=== PATIENT | male | born 1985 | race Hispanic/Latino ===

== ENCOUNTER 2016-06-11 15:23 | Inpatient (IN) | payer OTHER ==
[~2016-06-11] VITALS: Ht 172.7 cm; Wt 96.8 kg
[~2016-06-11 15:23] MED LIST: LORA-610 PO; METO50TA3 PO
--- NOTE | 2016-06-11 16:00 | NUR ---
Admit Pt walks in independently with steady gait. Report received from [facility]. No pain at this time. IV Left AC patent and covered. A&OX4. Denies CP, SOB, Nausea. States that he feels fine but was told to come to the hospital after MD office received his lab results. Care continues
[2016-06-11] MEDS ORDERED: 0.9% Sodium Chloride 1,000 ML IV SCH (16:17)
[2016-06-11] MEDS ORDERED: Ondansetron 2 mg/mL 2 mL Inj IVPUSH PRN (16:20)
[2016-06-11] MEDS ORDERED: Polyethylene Glycol (PEG) 17 Gm Powder PO PRN (16:20)
[2016-06-11] MEDS ORDERED: Alum-Mag Hydrox-Simeth 30 mL Suspension PO PRN (16:20)
[2016-06-11 16:27] VITALS: BP 177/115; PULSE 75; RESP 18; O2SAT 99
[2016-06-11] MEDS ORDERED: ALLO300T2 PO (16:36)
[2016-06-11] MEDS ORDERED: METO-274 PO (16:36)
[2016-06-11] MEDS ORDERED: AMLO5TAB2 PO (16:36)
--- NOTE | 2016-06-11 16:36 | PCM.HPMED ---
Subjective Date of Service Jun 11, 2016 Primary Provider: Admitting Physician: Manoj Suarez MD Primary Care Physician: Michelle Lara MD Attending Physician: Manoj Suarez MD Admit Status: From the Emergency Department, Admit to Red Team Chief Complaint: Elevated Creatinine History of Present Illness: Patient is a 30 year old male with a past medical history of Essential Hypertension, Chronic Kidney Disease (stage unknown), Gout, and Tobacco Use Disorder. He presented to the ER at [facility] today after he was advised to go there by his new PCP. Pt had a routine appointment to establish care with his PCP yesterday, and she ordered routine bloodwork. Pt was found to have a creatinine of 11 and was referred to the ER for emergent evaluation. Pt states he has had absolutely no symptoms. He denies any urinary changes, and he denies any edema. He states he has Gout and is supposed to take Allopurinol however he has been unable to get his medication filled for quite some time secondary to scheduling conflicts. He has severe chronic pain secondary to Gout in his right ankle, and because of this he has been taking 600 -800 mg of Ibuprofen 1-3 times a day for nearly a year. Pt denies any hematuria. In the ER at [facility], he was given 1 liter of Normal Saline IV and transferred here for Nephrology work-up. Pt has no other complaints or concerns at this time. Review of Systems: All systems reviewed and are negative except for what has already been mentioned in the HPI. Allergies Coded Allergies: No Known Allergies (Unverified Allergy, 05/29/13) Home Medications 1. Metoprolol 100 mg PO BID 2. Ibuprofen 600-800 mg 1-3 times daily PRN PMH 1. Chronic Kidney Disease, Stage Unknown 2. Essential Hypertension 3. Gout 4. Tobacco Use Disorder Family History Pt denies any family history of renal disease. Social History Hx Alcohol Use: Yes ("occasional") Hx Substance Use: No Hx Tobacco Use: Yes Smoking Status: Light Tobacco Smoker Exam Vital Signs Vital Sign - Last Date Time Temp Pulse Resp B/P Pulse Ox O2 Delivery O2 Flow Rate FiO2 06/11/16 16:27 36.5 75 18 177/115 99 Room Air Exam GENERAL: NAD, Pt sitting comfortably in elida HEENT: AT/NC, PERRLA, EOMI, MM moist CARDIAC: RRR, No M/R/G PULM: CTAB ABD: Soft, NT, ND, No CVA tenderness bilaterally; No hepatosplenomegaly present EXT: Trace edema in bilateral LE, No calve tenderness bilaterally SKIN: Warm, dry, pink, and intact NEURO: Alert and oriented x3; Following all commands Assessment & Plan Patient is a 30 year old male with a history of Chronic Kidney Disease, Essential Hypertension, and Gout who is admitted to hospital with Acute Kidney Injury on Chronic Kidney Disease likely related to heavy NSAID usage. 1. Acute Kidney Injury on Chronic Kidney Disease - Likely secondary to heavy NSAID use - Creatinine at [facility] was 11 today - Check STAT CMP and UA now - Start telemetry monitoring - Will order a STAT renal US - Avoid NSAIDs, and renally dose all medications - Avoid nephrotoxic substances - Nephrology has been consulted, and will see the patient in the AM - Pt received 1 liter of Normal Saline at [facility] today - Start IV Normal Saline at 150 mL/hour now - Check Uric Acid level now 2. Essential Hypertension - Continue home Metoprolol 100 mg PO BID - Monitor BP closely 3. Gout - Pt is non compliant with his Allopurinol - He has been taking heavy doses of Ibuprofen for the last year to control his gout pain - Check Uric Acid level now 4. Tobacco Use Disorder - Pt counseled to quit smoking 5. Disposition - Pt is admitted to hospital under inpatient status as his expected length of stay is greater than 2 midnights. He does not have any identifiable social work needs and will likely return home without any needs post discharge. FULL CODE, per discussion with patient at bedside Manoj Suarez MD Jun 11, 2016 16:36
[2016-06-11] MEDS ORDERED: ACET-171 PO (16:44)
[2016-06-11] MEDS ORDERED: IBUP200C PO (16:44)
[2016-06-11] MEDS ORDERED: CALC500T9 PO (16:52)
--- NOTE | 2016-06-11 16:57 | NUR ---
Admit nurse note Admission assessment completed based on pt. report. Pt. states he went to his doctor to try to "reconnect" as his former doctor left [facility]. Pt. states he has been out of some of his meds since December because of poor follow up with doctor. States he was referred here after lab work with not much idea of why he was here aside from "My numbers were high." "People asked me why I was here and I was like 'that's why I'm here, I don't know'." Pt. gives hx 1 kidney smaller than the other. Allergies verified and pt. oriented to room. Med rec completed per pt. recall. Report given to Eliane Haley.
[2016-06-11 17:07] LABS: BASOPHILS % (AUTO) 0.3 % (0-3); EOSINOPHILS % (AUTO) 2.3 % (0-5); MONOCYTES % (AUTO) 5.3 % (4-12); Mean Corpuscular Hemoglobin 31.3 pg (27.0-35.0); Mean Corpuscular Volume 88.2 fL (81-100); NEUTROPHILS % (AUTO) 66.7 % (40-74); Platelet Count 204 bil/L (150-400)
[2016-06-11 17:25] VITALS: PULSE 72
--- NOTE | 2016-06-11 19:27 | DRSVH ---
PROCEDURE: US RENAL SONOGRAM INDICATIONS: ana vs ckd TECHNIQUE: Real-time scanning was performed of the kidneys and bladder, with image documentation. COMPARISON: None. FINDINGS: Kidneys: Kidneys are decreased in size. Right kidney measures 7.6 cm long; left kidney measures 9.7 cm long. Right renal cortical thickness is 1.8 cm; left renal cortical thickness is 1.8 cm. there i s bilateral cortical atrophy. No hydronephrosis or nephrolithiasis. No suspicious solid mass lesion s. Lobulated appearance of the right kidney. There is hyperechoic left renal parenchymal echotexture probably reflecting medical renal disease. Simple appearing left renal cyst measuring 0.7 x 0.6 x 0. 8 cm. Bladder: Pre-void bladder volume is 168 mL. Post-void residual is 3 mL. Pre-void images demonstrat e no intraluminal masses or stones. On pre-void images, both of the ureteral jets are noted with col or Doppler interrogation. (Of note, ureteral jets may not be detectable in up to 25% of cases due to insufficient differences in specific gravity between ureteral and bladder urine). Miscellaneous: No free pelvic fluid. IMPRESSION: No hydronephrosis. Renal atrophy and parenchymal appearance suggesting medical renal disease. Please correlate clinicall y. Probable simple appearing left renal cyst, too small to characterize definitively. Dictated by: Constantin Groves M.D. on 06/11/2016 at 19:23 Approved by: Constantin Groves M.D. on 06/11/2016 at 19:25
[2016-06-11 20:41] VITALS: BP 157/95; PULSE 70; RESP 18; O2SAT 100
--- NOTE | 2016-06-11 23:41 | CONS ---
[address] [address] CONSULTATION REPORT PATIENT: HORTENSIA JOHNSON : 1985 MR#: [id number] ADMIT: 06/11/2016 JOB ID: [id number] CORRECTED REPORT: DATE OF SERVICE: 06/11/2016 HISTORY OF PRESENT ILLNESS: The patient is a rather unfortunate 30-year-old gentleman who was admitted to [facility] for acute kidney injury versus stage V kidney disease. Renal consultation is being sought for further evaluation and management of his renal disease. The patient has a longstanding history of hypertension dating back to high school. At that time he was seen at [facility] and underwent a renal angiogram which showed an atrophic right kidney and possible renal artery stenosis, however, this was not amenable to angioplasty. He states that he was placed on metoprolol and has been on this for some time. Several years ago his creatinine was 2.5. He has not had any followup for several years. He does relate a history of significant gout involving both first metatarsophalangeal joints and his right ankle. He states that he has been taking allopurinol in the past but ran out of prescription. For the last 6-12 months, he states that he has been taking ibuprofen on a daily basis. He was seen by Dr. Canseco for a primary care appointment yesterday and some routine lab work was ordered. Apparently, he was notified today that his tests were "abnormal" and he was advised to go to an emergency department. He went to [facility] and at that time he was found to have a creatinine of 12. I was contacted by the emergency department at [facility] to see about getting him scheduled for an outpatient appointment. In light of the recent history and uncertain rapidity of this increased creatinine I recommended that he be admitted to the hospital for further evaluation. He states that he has been told in the remote past that he had proteinuria and microscopic hematuria, however, he has never had a renal biopsy. He denies a history of any renal lithiasis, recurrent urinary tract infections, diabetes, lupus, or prior hepatitis. He states that recently his appetite has been good, however, he has cut down on meat not because of loss of taste but it helps prevent his gout attacks. He denies any recurrent nausea, vomiting, diarrhea, pruritus, or sleep disturbances. He does relate a recent nonproductive cough. Otherwise, he denies any severe headache, visual disturbances, cough, wheezing, asthma, paroxysmal nocturnal dyspnea, chest pain, or dyspnea on exertion. He does have some mild bilateral lower extremity edema which tends be worse toward the end of the day. He denies any constipation, diarrhea, jaundice, fever, chills, arthralgias, rash, or significant change in his weight. PAST HISTORY: Remarkable only for an angiographic procedure as detailed above. SOCIAL HISTORY: He denies use of tobacco, and states that he takes ethanol on occasions but has not had any in some time because of gout. He works as a mechanic and welder and normally is quite active in his numerous activities which he performs without significant problems or restriction. FAMILY HISTORY: Remarkable for hypertension, but no history of any prior renal disease or diabetes. MEDICATIONS: Prior to admission include metoprolol and [id number] ibuprofen. REVIEW OF SYSTEMS: As detailed above. PHYSICAL EXAMINATION: Revealed a pale, somewhat stocky, 30-year-old gentleman who is alert and oriented x3, in no distress at time my evaluation. His blood pressure is 177/115 with a pulse of 75. HEENT examination: Remarkable for pale sclerae. Cornea and conjunctivae were unremarkable. There was no icterus. I did not appreciate a uremic fetor. Neck is supple without adenopathy, thyromegaly or jugular venous distention. Lungs are clear to auscultation. Heart is regular and rhythmical with grade 2/6 systolic ejection murmur. There was no rub, click or gallop. Abdomen: Soft, without evidence of an epigastric bruit. There was no tenderness, rebound, guarding, masses or hepatosplenomegaly. There was no fluid wave noted. Extremities did not show any evidence of any clubbing, cyanosis, or edema. Skin turgor is good. There is no evidence of any rashes. LABORATORY EXAMINATION: This morning, laboratory was obtained at [facility] and showed a sodium of 138, potassium 4.3, chloride 103, bicarbonate 17, BUN and creatinine were 85 and 12.1 respectively. His albumin is slightly low at 3.0. Liver function studies were normal. Urinalysis showed a specific gravity 1.020, pH is 6.5, test for protein, blood, glucose were positive. There were 3-5 RBCs per high-power field and 1+ bacteria. His urine sodium was 21. Hemoglobin was 9.9 with normal indices. IMPRESSION: 1. End-stage renal disease versus acute on chronic kidney injury secondary to medication from nonsteroidals. 2. Atrophic right kidney. 3. Hypertension with hypertensive heart disease and hypertensive nephrosclerosis. 4. Metabolic acidosis. 5. Anemia. 6. Hyperuricemia. RECOMMENDATION: I would like to obtain a renal ultrasound along with an echocardiogram. I would also like to check an MARGARET, hepatitis profile, phosphorus level, parathyroid hormone level, urine protein/creatinine ratio, and hemoglobin A1c. In the meantime, we will see if there is a possible reversible component; if not, will get him prepared for dialysis. Once again, I would like to thank you for allowing me to participate in the care of this very pleasant, but somewhat unfortunate patient. I will be following him closely with you. Corrected by DU 07/23/16 at 12:06am DOS.
[2016-06-12] VITALS (9 sets, daily range): BP systolic 145–181; BP diastolic 88–111; PULSE 62–73; RESP 18–20; O2SAT 98–100
--- NOTE | 2016-06-12 03:52 | NUR ---
Nephrology Patient up independent in room to bathroom. Patient states he has not pain. Vital signs stable. Patient saline locked. Room air. Tele sinus 70's.
[2016-06-12 06:14] LABS: Phosphorus 10.4 mg/dL (2.5-4.9); Unsaturated Iron Binding 131.9 ug/dL
--- NOTE | 2016-06-12 11:35 | PCM.PNMED ---
Subjective Date of Service Jun 12, 2016 Subjective no new complaints,he says he wants to go home today . Exam Vital Signs Vital Sign - Last Date Time Temp Pulse Resp B/P Pulse Ox O2 Delivery O2 Flow Rate FiO2 06/12/16 08:11 36.4 62 18 156/96 98 Room Air Intake and Output 06/11/16 06/11/16 06/12/16 Cumulative From/Thru 15:00 23:00 07:00 06/11/16 16:28 - 06/12/16 06:28 Intake Total 0 ml 400 ml 400 ml Output Total 0 ml 625 ml 625 ml Balance 0 ml -225 ml -225 ml Intake Oral 0 ml 400 ml 400 ml Output Urine Total 0 ml 625 ml 625 ml # Bowel Movements 0 0 Exam GENERAL: NAD, Pt sitting comfortably in elida HEENT: AT/NC, PERRLA, EOMI, MM moist CARDIAC: RRR, No M/R/G PULM: CTAB ABD: Soft, NT, ND, No CVA tenderness bilaterally; No hepatosplenomegaly present EXT: Trace edema in bilateral LE, No calve tenderness bilaterally SKIN: Warm, dry, pink, and intact NEURO: Alert and oriented x3; Following all commands IVs and Medications Medications Reviewed: Medications were reviewed in detail Lab and Diagnostics Result Diagram: 06/11/16165106/11/161651 X-Rays, CTs and MRIs PROCEDURE: US RENAL SONOGRAM INDICATIONS: arden vs ckd TECHNIQUE: Real-time scanning was performed of the kidneys and bladder, with image documentation. COMPARISON: None. FINDINGS: Kidneys: Kidneys are decreased in size. Right kidney measures 7.6 cm long; left kidney measures 9.7 cm long. Right renal cortical thickness is 1.8 cm; left renal cortical thickness is 1.8 cm. there is bilateral cortical atrophy. No hydronephrosis or nephrolithiasis. No suspicious solid mass lesions. Lobulated appearance of the right kidney. There is hyperechoic left renal parenchymal echotexture probably reflecting medical renal disease. Simple appearing left renal cyst measuring 0.7 x 0.6 x 0.8 cm. Bladder: Pre-void bladder volume is 168 mL. Post-void residual is 3 mL. Pre- void images demonstrate no intraluminal masses or stones. On pre-void images, both of the ureteral jets are noted with color Doppler interrogation. (Of note , ureteral jets may not be detectable in up to 25% of cases due to insufficient differences in specific gravity between ureteral and bladder urine). Miscellaneous: No free pelvic fluid. IMPRESSION: No hydronephrosis. Renal atrophy and parenchymal appearance suggesting medical renal disease. Please correlate clinically. Probable simple appearing left renal cyst, too small to characterize definitively. Dictated by: Constantin Groves M.D. on 06/11/2016 at 19:23 Assessment & Plan Patient is a 30 year old male with a history of Chronic Kidney Disease, Essential Hypertension, and Gout who is admitted to hospital with Acute Kidney Injury on Chronic Kidney Disease likely related to heavy NSAID usage. #. ESRD ,newly diagnosed -due to progressive CKD due to heavy NSAID use.no evidence of ARDEN, US kidneys also consistent with renal atrophy - telemetry monitoring - Avoid NSAIDs, and renally dose all medications - Avoid nephrotoxic substances - Nephrology planning to initiate dialysis as inpatient . - Pt received 1 liter of Normal Saline at [facility] today - discontinue IV Normal Saline at 150 mL/hour now -hepatitis panel,autoimmune workup pending # metabolic acidosis due to ESRD # anemia of ESRD -defer mx to Dr Hall #. Essential Hypertension - Continue home Metoprolol 100 mg PO BID - Monitor BP closely #. history of Gout - Pt is non compliant with his Allopurinol - He has been taking heavy doses of Ibuprofen for the last year to control his gout pain - Uric Acid level 10.3.,may need allopurinol ,will defer to nephrology #. Tobacco Use Disorder - Pt counseled to quit smoking #. Disposition - patient likley to be initiated on HD as inpatient and will need HD arrangement for outpatient FULL CODE, per discussion with patient at bedside VTE Mechanical Devices: Intermittant Pneumatic CD John Jay MD Jun 12, 2016 11:35 John Jay MD Jun 12, 2016 11:35
--- NOTE | 2016-06-12 12:03 | DRSVH ---
[facility] [address] [place] [address] Echocardiogram Report Name: HORTENSIA JOHNSON Study Date: 06/12/2016 Height: 68 in Hospital Exam Location: [facility] Weight: 215 lb Gender: Male BSA: 2.1 m2 : 1985 Age: 30 yrs BP: 156/96 mmHg Reason For Study: Hypertension History: hypertension Ordering Physician: Performed By: Lucia Magaña Interpretation Summary 1. Normal left ventricular size with mild to moderate concentric hypertrophy and normal systolic function with an estimated EF of 60-65% 2. Normal right ventricular size and systolic function. 3. No evidence for valvular pathology There is no old study for comparison Procedure: A two-dimensional transthoracic echocardiogram with color flow and Doppler was performed. The study quality was technically good. There is no prior echocardiogram noted for this patient. The patient was in normal sinus rhythm during the exam. Left Ventricle: The left ventricle is normal in size. There is mild- moderate concentric left ventricular hypertrophy. The ejection fraction is estimated to be 60-65%. Left ventricular wall motion is normal. Assessment of diastolic parameters indicates normal left ventricular diastolic function and normal filling pressures. Right Ventricle: The right ventricle is normal in size and function. Atria: MIld to moderately dilated left atrium. Right atrial size is normal. No color doppler evidence for an ASD. Mitral Valve: The mitral valve is normal in structure and function. There is trace mitral regurgitation. Aortic Valve: The aortic valve is trileaflet. The aortic valve opens well. No aortic regurgitation is present. Tricuspid Valve: The tricuspid valve is normal in structure and function. There is trace tricuspid regurgitation. The right ventricular systolic pressure is estimated at 33 mmHg assuming a right atrial pressure of 3 mm Hg. Pulmonic Valve: The pulmonic valve is not well seen, but is grossly normal. There is a trace or physiologic amount of pulmonic regurgitation. Great Vessels: The aortic root is normal size. The ascending aorta is normal in size. The aortic arch is normal in size. The pulmonary artery is normal size. The IVC is of normal diameter and collapses greater than 50% with a sniff. This suggests a low right atrial pressure of 3 mm Hg. Pericardium/ Pleura There is no pericardial effusion. MMode/2D Measurements & Calculations LVIDd: 5.0 cm LA dimension: 4.2 cm RA long axis LVOT diam: 2.3 cm LVIDs: 3.3 cm Ao root diam FS: 33.7 % LA A2 area: 26.5 cm RA area EPSS: 0.43 cm LA A4 area: 25.1 cm Aortic Jxn: 2.2 cm IVSd: 1.4 cm LA length (vol) : 15.2 cm asc Aorta Diam LVPWd: 1.3 cm RA vol LA vol: 96.4 ml : 38.7 ml Ao Arch Diam (Prox LA vol index RA Trans): 2.5 cm : 18.4 mm2 IVC diam: 1.3 cm LV bautista. diameter/BSA LV sys. diameter/BSA RVD1 (basal) RVD2 (mid): 2.8 cm (cm/m^2): 2.4 (cm/m^2): 1.6 Doppler Measurements & Calculations Ao V2 max MV E max kevin MV E/A: 1.3 TR max kevin : 117.9 cm/sec : 75.5 cm/sec Med Peak E' Kevin : 287.4 cm/sec Ao max PG MV A max kevin TR max PG : 5.6 mmHg : 58.3 cm/sec E/E' med: 9.0 : 33.0 mmHg Ao mean PG MV P1/2t: 60.3 msec Lat Peak E' Kevin PA V2 max : 129.3 cm/sec LVOT Max Kevin E/E' lat: 7.5 PA mean PG : 97.2 cm/sec E/e' average: 8.3 PA Accel Time LYRIC(I,D): 3.6 cm : 0.14 sec sev ratio MV dec time MV P1/2t max kevin Ao V2 mean LV V1 max PG : 0.21 sec : 89.1 cm/sec MVA(P1/2t): 3.6 cm2 Ao V2 VTI: 26.0 cm LV V1 VTI LYRIC(V,D): 3.5 cm2 : 22.1 cm PA V2 mean LYRIC indexed to BSA : 85.5 cm/sec (cm^2/m^2): 1.7 Reading Physician:12:02 PM
[2016-06-12] MEDS ORDERED: Darbepoetin Alfa 60 mCg/0.3 mL Inj SUBQ ONE (15:45)
--- NOTE | 2016-06-12 15:45 | PCM.PNNEPH ---
Subjective Date of Service Jun 12, 2016 Subjective The patient has no new complaints this morning. I have reviewed all of his data and his results are as follows: Ultrasound showed a markedly atrophic right kidney and a left kidney which is smaller than would be expected with diffuse echogenicity. All of this is consistent with chronic kidney disease. Echocardiogram showed concentric left ventricular hypertrophy with normal ejection fraction and no evidence of diastolic dysfunction. His parathyroid hormone level was significantly elevated at 7:30, Phosphorus was 10.4 calcium 6.6, uric acid 9.7, hemoglobin 9.5, sodium is 137, potassium 5.1, chloride 105, and bicarbonate was 14. This is consistent with end-stage renal disease. Exam Vital Signs Vital Sign - Last Date Time Temp Pulse Resp B/P Pulse Ox O2 Delivery O2 Flow Rate FiO2 06/12/16 13:45 68 18 163/109 100 Room Air 06/12/16 12:51 36.7 Intake and Output 06/11/16 06/11/16 06/12/16 Cumulative From/Thru 14:59 22:59 06:59 06/11/16 16:28 - 06/12/16 06:28 Intake Total 0 ml 400 ml 400 ml Output Total 0 ml 625 ml 625 ml Balance 0 ml -225 ml -225 ml Intake Oral 0 ml 400 ml 400 ml Output Urine Total 0 ml 625 ml 625 ml # Bowel Movements 0 0 Exam HEENT examination is remarkable for pale sclera and sallow complexion. Neck is supple without adenopathy, venous distention. Lungs are clear to auscultation. Heart is regular and rhythmical with a soft systolic murmur. Abdomen is soft without any tenderness, rebound, guarding, masses, or hepatosplenomegaly. Extremities do not show any evidence of any significant clubbing, cyanosis or edema. Lab and Diagnostics Result Diagram: 06/11/16165106/11/161651 X-Rays, CTs and MRIs PROCEDURE: US RENAL SONOGRAM INDICATIONS: ana vs ckd TECHNIQUE: Real-time scanning was performed of the kidneys and bladder, with image documentation. COMPARISON: None. FINDINGS: Kidneys: Kidneys are decreased in size. Right kidney measures 7.6 cm long; left kidney measures 9.7 cm long. Right renal cortical thickness is 1.8 cm; left renal cortical thickness is 1.8 cm. there is bilateral cortical atrophy. No hydronephrosis or nephrolithiasis. No suspicious solid mass lesions. Lobulated appearance of the right kidney. There is hyperechoic left renal parenchymal echotexture probably reflecting medical renal disease. Simple appearing left renal cyst measuring 0.7 x 0.6 x 0.8 cm. Bladder: Pre-void bladder volume is 168 mL. Post-void residual is 3 mL. Pre- void images demonstrate no intraluminal masses or stones. On pre-void images, both of the ureteral jets are noted with color Doppler interrogation. (Of note , ureteral jets may not be detectable in up to 25% of cases due to insufficient differences in specific gravity between ureteral and bladder urine). Miscellaneous: No free pelvic fluid. IMPRESSION: No hydronephrosis. Renal atrophy and parenchymal appearance suggesting medical renal disease. Please correlate clinically. Probable simple appearing left renal cyst, too small to characterize definitively. Dictated by: Constantin Groves M.D. on 06/11/2016 at 19:23 Plan Impression Impression #1 end-stage renal disease dialysis dependent #2 hypertension with hypertensive heart disease and hypertensive nephrosclerosis #3 atrophic kidney # 4 hyperparathyroidism secondary to chronic kidney disease #5 anemia secondary to chronic kidney disease. Recommendations #1 I will have our nurses and educational staff from her dialysis unit, and discussed different options with the patient. I will also reported and start him on Renvela 13 times a day with food along with sodium bicarbonate tablets and allopurinol. She makes a decision as far as modality to proceed. Nicho Hall DO Jun 12, 2016 15:45
--- NOTE | 2016-06-12 15:46 | NUR ---
Social Work Note: Screen Note Data & Assessment: EMR reviewed. Patient is a 30 year old female admitted on 06/11/16 for acute kidney injury. Pt has [employer] for insurance coverage and sees Nat Canseco MD for primary care. Pt lives in [place] with family and is independent at baseline. Pt is currently independent in her room. No discharge needs identified at this time. SW to continue to follow if any needs arise. Plan: Anticipated discharge home via POV when medically ready. No discharge needs identified at this time. SW to continue to follow if any needs arise. Shavon Santillan, JESIKA, ACM
[2016-06-12 16:39] LABS: Mean Corpuscular Hemoglobin 30.2 pg (27.0-35.0); Mean Corpuscular Volume 89.3 fL (81-100)
[2016-06-12 16:40] LABS: BASOPHILS % (AUTO) 0.5 % (0-3); EOSINOPHILS % (AUTO) 2.1 % (0-5); MONOCYTES % (AUTO) 4.8 % (4-12); NEUTROPHILS % (AUTO) 66.1 % (40-74); Platelet Count 211 bil/L (150-400)
[2016-06-13] VITALS (10 sets, daily range): BP systolic 152–187; BP diastolic 84–120; PULSE 66–77; RESP 16–18; O2SAT 99–100
[2016-06-13 02:11] LABS: Hepatitis A Antibody IgM Negative (Negative); Hepatitis B Core Antibody IgM Negative (Negative)
--- NOTE | 2016-06-13 02:43 | NUR ---
Activity Patient up independently in room. Gait steady. Denies pain or discomfort. Requesting shower this evening. Per Dr. Ford, it's okay to remove tele for patient to shower. Patient showered independently with set up assist. BP slowly trending down this shift.
[2016-06-13] MEDS ORDERED: 0.9% Sodium Chloride 1,000 ML IV SCH (08:30)
--- NOTE | 2016-06-13 14:11 | PCM.PNNEPH ---
Subjective Date of Service Jun 13, 2016 Subjective Patient has no new complaints. His blood pressure remains elevated and now that we have established that he has end-stage renal disease and will further address this. Echocardiogram was reviewed and shows concentric left ventricular hypertrophy with an ejection fraction of 60-65%. Patient states that he wants to initially start on hemodialysis and I will go ahead and make arrangements for his catheter replaced Wednesday morning and we will do his first treatment on Wednesday and after that he can be discharged. Exam Vital Signs Vital Sign - Last Date Time Temp Pulse Resp B/P Pulse Ox O2 Delivery O2 Flow Rate FiO2 06/13/16 13:46 174/105 06/13/16 10:53 70 06/13/16 10:40 36.6 100 Room Air 06/13/16 04:47 18 Intake and Output 06/12/16 06/12/16 06/13/16 Cumulative From/Thru 14:59 22:59 06:59 06/11/16 16:28 - 06/13/16 04:33 Intake Total 1200 ml 1600 ml Output Total 1000 ml 1625 ml Balance 200 ml -25 ml Intake Oral 1200 ml 1600 ml Output Urine Total 1000 ml 1625 ml # Bowel Movements 0 0 Exam Neck is supple without adenopathy thyromegaly or jugular venous distention. Lungs are clear to auscultation. Heart was regular and rhythmical with a soft systolic murmur. Abdomen is soft without any tenderness rebound guarding masses or hepatosplenomegaly. Extremities show any evidence of any clubbing, cyanosis, or edema. Skin turgor is good. Lab and Diagnostics Result Diagram: 06/12/16 1612 06/13/16 0845 X-Rays, CTs and MRIs PROCEDURE: US RENAL SONOGRAM INDICATIONS: ana vs ckd TECHNIQUE: Real-time scanning was performed of the kidneys and bladder, with image documentation. COMPARISON: None. FINDINGS: Kidneys: Kidneys are decreased in size. Right kidney measures 7.6 cm long; left kidney measures 9.7 cm long. Right renal cortical thickness is 1.8 cm; left renal cortical thickness is 1.8 cm. there is bilateral cortical atrophy. No hydronephrosis or nephrolithiasis. No suspicious solid mass lesions. Lobulated appearance of the right kidney. There is hyperechoic left renal parenchymal echotexture probably reflecting medical renal disease. Simple appearing left renal cyst measuring 0.7 x 0.6 x 0.8 cm. Bladder: Pre-void bladder volume is 168 mL. Post-void residual is 3 mL. Pre- void images demonstrate no intraluminal masses or stones. On pre-void images, both of the ureteral jets are noted with color Doppler interrogation. (Of note , ureteral jets may not be detectable in up to 25% of cases due to insufficient differences in specific gravity between ureteral and bladder urine). Miscellaneous: No free pelvic fluid. IMPRESSION: No hydronephrosis. Renal atrophy and parenchymal appearance suggesting medical renal disease. Please correlate clinically. Probable simple appearing left renal cyst, too small to characterize definitively. Dictated by: Constantin Groves M.D. on 06/11/2016 at 19:23 Plan Impression Impression #1 end-stage renal disease #2 hypertension with hypertensive heart disease and hypertensive nephrosclerosis #3 anemia secondary to chronic kidney disease number for hyperparathyroidism secondary to chronic kidney disease for her questionable 5 hyperuricemia Recommendations #1 I would like to start him on lisinopril 10 mg twice a day and change his metoprolol to labetalol 200 twice a day. He is scheduled to have a tunneled catheter placed on Wednesday and I will premedicate him with DDAVP. Nicho Hall DO Jun 13, 2016 14:11
--- NOTE | 2016-06-13 15:10 | NUR ---
hematuria urine continues dark red, no clots, pt does feel a bit SOB with exertion, VSS, Addendum: 06/13/16 at 1512 by MAXIMILIANO TAN RN above note entered on wrong pt
--- NOTE | 2016-06-13 15:12 | NUR ---
prior note entered in error
--- NOTE | 2016-06-13 15:13 | NUR ---
hypertension BP this am as high as 187/120,ad after am Metoprolol reading decreased to 167/104, Dr Butler has ordered more antihypertensives
--- NOTE | 2016-06-13 15:35 | PCM.PNMED ---
Subjective Date of Service Jun 13, 2016 Subjective Follow up for ESRD and need to start hemodialysis No interval changes. No new complaints Exam Vital Signs Vital Sign - Last Date Time Temp Pulse Resp B/P Pulse Ox O2 Delivery O2 Flow Rate FiO2 06/13/16 13:46 174/105 06/13/16 10:53 70 06/13/16 10:40 36.6 100 Room Air 06/13/16 04:47 18 Intake and Output 06/12/16 06/12/16 06/13/16 Cumulative From/Thru 15:00 23:00 07:00 06/11/16 16:28 - 06/13/16 04:33 Intake Total 1200 ml 1600 ml Output Total 1000 ml 1625 ml Balance 200 ml -25 ml Intake Oral 1200 ml 1600 ml Output Urine Total 1000 ml 1625 ml # Bowel Movements 0 0 Exam GENERAL: NAD, HEENT: AT/NC, PERRLA, EOMI, Mucus Membranes are moist CHEST : Normal resp effort. No chest wall tenderness CARDIAC: RRR; No M/R/G PULM: CTAB; No wheezes or rhonchi bilaterally ABD: Soft, , Nondistended, Positive bowel sounds in all quadrants, No Hepatosplenomegaly appreciated EXT: No C/C/E; No calf tenderness bilaterally SKIN: Warm, Dry, [place], and Intact NEURO: Alert and oriented x3; Following all commands PSYCH: Normal mood and affect IVs and Medications Medications Reviewed: Medications were reviewed in detail Lab and Diagnostics Result Diagram: 06/12/16 1612 06/13/16 0845 X-Rays, CTs and MRIs PROCEDURE: US RENAL SONOGRAM INDICATIONS: ana vs ckd TECHNIQUE: Real-time scanning was performed of the kidneys and bladder, with image documentation. COMPARISON: None. FINDINGS: Kidneys: Kidneys are decreased in size. Right kidney measures 7.6 cm long; left kidney measures 9.7 cm long. Right renal cortical thickness is 1.8 cm; left renal cortical thickness is 1.8 cm. there is bilateral cortical atrophy. No hydronephrosis or nephrolithiasis. No suspicious solid mass lesions. Lobulated appearance of the right kidney. There is hyperechoic left renal parenchymal echotexture probably reflecting medical renal disease. Simple appearing left renal cyst measuring 0.7 x 0.6 x 0.8 cm. Bladder: Pre-void bladder volume is 168 mL. Post-void residual is 3 mL. Pre- void images demonstrate no intraluminal masses or stones. On pre-void images, both of the ureteral jets are noted with color Doppler interrogation. (Of note , ureteral jets may not be detectable in up to 25% of cases due to insufficient differences in specific gravity between ureteral and bladder urine). Miscellaneous: No free pelvic fluid. IMPRESSION: No hydronephrosis. Renal atrophy and parenchymal appearance suggesting medical renal disease. Please correlate clinically. Probable simple appearing left renal cyst, too small to characterize definitively. Dictated by: Constantin Groves M.D. on 06/11/2016 at 19:23 Assessment & Plan Patient is a 30 year old male with a history of Chronic Kidney Disease, Essential Hypertension, and Gout who is admitted to hospital with Acute Kidney Injury on Chronic Kidney Disease likely related to heavy NSAID usage. 1. ESRD -due to progressive CKD due to heavy NSAID , hypertensive nephropathy. US kidneys also consistent with renal atrophy Tunneled dialysis catheter scheduled for Wednesday. IV discontinued after a brief infusion. Patient with chronic renal failure and is ESRD> 2. metabolic acidosis due to ESRD 3. Anemia of CKD 4. . Essential Hypertension - Continue home Metoprolol 100 mg PO BID -Lisinopril 10 mg added by nephrology 5. H/o f Gout - Pt is non compliant with his Allopurinol - He has been on Ibuprofen for the last year to control his gout pain 6. Tobacco Use Disorder - Pt counseled to quit smoking Clinically and hemodynamically stable Management per nephrology VTE Mechanical Devices: Intermittant Pneumatic CD Resuscitation Status: CPR: Attempt Resuscitation Time spent 25 minutes Nolan Butler MD Jun 13, 2016 15:35
[2016-06-13 16:53] LABS: BASOPHILS % (AUTO) 0.4 % (0-3); EOSINOPHILS % (AUTO) 1.7 % (0-5); Mean Corpuscular Volume 89.6 fL (81-100); NEUTROPHILS % (AUTO) 58.6 % (40-74); Platelet Count 192 bil/L (150-400)
--- NOTE | 2016-06-14 03:21 | NUR ---
ACTIVITY/BP: Pt. with a lot of family and friends in his room visiting this evening. Has been up independently in his room. Took a shower at HS after family and friends left. HS ID=[id number], was given BP meds at HS. Denies chest pain or chest discomfort. A & O. All other vss. On going care.
[2016-06-14] MEDS: HYDROcodone-APAP 5-325 mg Tablet PO PRN (05:11)
[2016-06-14 06:22] VITALS: BP 153/82; PULSE 96; RESP 20; O2SAT 97
[2016-06-14 06:38] LABS: INR 0.97 ratio
[2016-06-14 08:05] VITALS: BP 165/97; PULSE 90; RESP 16; O2SAT 98
[2016-06-14] MEDS ORDERED: MethylprednisoLONE Sodium Succinate 40 mg/mL Inj IVPUSH ONE (10:10)
--- NOTE | 2016-06-14 11:48 | PCM.PNNEPH ---
Subjective Date of Service Jun 14, 2016 Subjective Patient continues to do well. His blood pressure is still up a bit and I will adjust his medication. His only other complaint is a flareup of his podiatry in his right foot. His blood pressures have averaged between 150 and 180. Intake and output in last 24 hours show 750 in and 1450 out. He is scheduled to have a tunneled catheter placed tomorrow and his first dialysis treatment following this he can be discharged pending his permanent outpatient dialysis spot. Exam Vital Signs Vital Sign - Last Date Time Temp Pulse Resp B/P Pulse Ox O2 Delivery O2 Flow Rate FiO2 06/14/16 08:05 36.4 90 16 165/97 98 Room Air Intake and Output 06/13/16 06/13/16 06/14/16 Cumulative From/Thru 15:00 23:00 07:00 06/11/16 16:28 - 06/14/16 06:22 Intake Total 750 ml 450 ml 2800 ml Output Total 1450 ml 850 ml 3925 ml Balance -700 ml -400 ml -1125 ml Intake Oral 750 ml 450 ml 2800 ml Output Urine Total 1450 ml 850 ml 3925 ml # Bowel Movements 0 0 0 Exam Neck is supple without adenopathy thyromegaly or jugular venous distention. Lungs are clear to auscultation. Heart is regular and rhythmical with soft systolic murmur. Abdomen is soft without any tenderness or rebound guarding masses or hepatosplenomegaly. Extremities do not show any evidence of any clubbing cyanosis or edema. Lab and Diagnostics Result Diagram: 06/13/16 1620 06/13/16 0845 X-Rays, CTs and MRIs PROCEDURE: US RENAL SONOGRAM INDICATIONS: ana vs ckd TECHNIQUE: Real-time scanning was performed of the kidneys and bladder, with image documentation. COMPARISON: None. FINDINGS: Kidneys: Kidneys are decreased in size. Right kidney measures 7.6 cm long; left kidney measures 9.7 cm long. Right renal cortical thickness is 1.8 cm; left renal cortical thickness is 1.8 cm. there is bilateral cortical atrophy. No hydronephrosis or nephrolithiasis. No suspicious solid mass lesions. Lobulated appearance of the right kidney. There is hyperechoic left renal parenchymal echotexture probably reflecting medical renal disease. Simple appearing left renal cyst measuring 0.7 x 0.6 x 0.8 cm. Bladder: Pre-void bladder volume is 168 mL. Post-void residual is 3 mL. Pre- void images demonstrate no intraluminal masses or stones. On pre-void images, both of the ureteral jets are noted with color Doppler interrogation. (Of note , ureteral jets may not be detectable in up to 25% of cases due to insufficient differences in specific gravity between ureteral and bladder urine). Miscellaneous: No free pelvic fluid. IMPRESSION: No hydronephrosis. Renal atrophy and parenchymal appearance suggesting medical renal disease. Please correlate clinically. Probable simple appearing left renal cyst, too small to characterize definitively. Dictated by: Constantin Groves M.D. on 06/11/2016 at 19:23 Plan Impression Impression #1 end-stage renal disease #2 hypertension with hypertensive heart disease and hypertensive nephrosclerosis #3 atrophic right kidney #4 anemia secondary to chronic kidney disease #5 hyperparathyroidism secondary to chronic kidney disease #6 acute podagra. Recommendations #1 I will increase his labetalol 300 twice a day and I would also like to start him on oral colchicine 0.6 mg 1 every 2 hours for either a total of 3 doses until he has symptomatic relief or diarrhea. I will also give him 40 of Solu-Medrol IV. Nicho Hall DO Jun 14, 2016 11:48
--- NOTE | 2016-06-14 11:53 | PCM.PNMED ---
Subjective Date of Service Jun 14, 2016 Subjective Follow up for ESRD and initiation of dialysis No interval changes. No ew complaints Exam Vital Signs Vital Sign - Last Date Time Temp Pulse Resp B/P Pulse Ox O2 Delivery O2 Flow Rate FiO2 06/14/16 08:05 36.4 90 16 165/97 98 Room Air Intake and Output 06/13/16 06/13/16 06/14/16 Cumulative From/Thru 15:00 23:00 07:00 06/11/16 16:28 - 06/14/16 06:22 Intake Total 750 ml 450 ml 2800 ml Output Total 1450 ml 850 ml 3925 ml Balance -700 ml -400 ml -1125 ml Intake Oral 750 ml 450 ml 2800 ml Output Urine Total 1450 ml 850 ml 3925 ml # Bowel Movements 0 0 0 Exam General: No acute distress. In bed comfortably HEENT: PERRL . Sclerae is anicteric Mouth : Moist oropharyngeal mucosa. Neck: supple, trachea is midline Chest:clear to auscultation and percussion. There are no rales, rhonchi, wheezes or rubs. Heart: S1, S2 regular Rate, rhythm is regular. There is no murmur, rub or gallop. Abdomen: Soft, non-tender, non-distended. Normal bowel sounds on quadrant Extremities: No edema, no cyanosis Neurologic: Grossly non focal IVs and Medications Medications Reviewed: Medications were reviewed in detail Lab and Diagnostics Result Diagram: 06/13/16 1620 06/13/16 0845 X-Rays, CTs and MRIs PROCEDURE: US RENAL SONOGRAM INDICATIONS: ana vs ckd TECHNIQUE: Real-time scanning was performed of the kidneys and bladder, with image documentation. COMPARISON: None. FINDINGS: Kidneys: Kidneys are decreased in size. Right kidney measures 7.6 cm long; left kidney measures 9.7 cm long. Right renal cortical thickness is 1.8 cm; left renal cortical thickness is 1.8 cm. there is bilateral cortical atrophy. No hydronephrosis or nephrolithiasis. No suspicious solid mass lesions. Lobulated appearance of the right kidney. There is hyperechoic left renal parenchymal echotexture probably reflecting medical renal disease. Simple appearing left renal cyst measuring 0.7 x 0.6 x 0.8 cm. Bladder: Pre-void bladder volume is 168 mL. Post-void residual is 3 mL. Pre- void images demonstrate no intraluminal masses or stones. On pre-void images, both of the ureteral jets are noted with color Doppler interrogation. (Of note , ureteral jets may not be detectable in up to 25% of cases due to insufficient differences in specific gravity between ureteral and bladder urine). Miscellaneous: No free pelvic fluid. IMPRESSION: No hydronephrosis. Renal atrophy and parenchymal appearance suggesting medical renal disease. Please correlate clinically. Probable simple appearing left renal cyst, too small to characterize definitively. Dictated by: Constantin Groves M.D. on 06/11/2016 at 19:23 Assessment & Plan Patient is a 30 year old male with a history of Chronic Kidney Disease, Essential Hypertension, and Gout who is admitted to hospital with Acute Kidney Injury on Chronic Kidney Disease likely related to heavy NSAID usage. 1. ESRD -due to progressive CKD due to heavy NSAID , hypertensive nephropathy. US kidneys also consistent with renal atrophy Tunneled dialysis catheter scheduled for Wednesday. IV discontinued after a brief infusion. Patient with chronic renal failure and is ESRD> 2. metabolic acidosis due to ESRD 3. Anemia of CKD 4. . Essential Hypertension : Uncontrolled . Systolic BP in the 160 . - Metoprolol increased to 300 mg by nephrology -Lisinopril 10 mg . 5. H/o f Gout - Pt is non compliant with his Allopurinol - He has been on Ibuprofen for the last year to control his gout pain 6. Tobacco Use Disorder - Pt counseled to quit smoking Clinically and hemodynamically stable Patient is scheduled for dialysis catheter insertion tomorrow for initiation of dialysis Management per nephrology VTE Mechanical Devices: Intermittant Pneumatic CD Resuscitation Status: CPR: Attempt Resuscitation Time spent 25 minutes Nolan Butler MD Jun 14, 2016 11:52
[2016-06-14 16:49] VITALS: BP 169/136; PULSE 85; RESP 16; O2SAT 98
[2016-06-14 16:52] VITALS: BP 170/100
--- NOTE | 2016-06-14 17:07 | NUR ---
BP/Activity Patient walked in halls and room today. Prefers to be dressed in own street clothes. BP remains high this shift despite change in BP meds. Dr. Hall states this is to be expected. Patient aware of plan to place dialysis catheter tomorrow and dialysis after. Patient agreeable to plan.
[2016-06-14 20:55] VITALS: BP 178/113; PULSE 102; RESP 20; O2SAT 98
[2016-06-14 22:09] LABS: COLOR,URINE STRAW (YELLOW)
[2016-06-14 22:10] LABS: APPEARANCE,URINE CLEAR (CLEAR,HAZY); OCCULT BLOOD,URINE MODERATE (NEGATIVE); UROBILINOGEN,URINE NORMAL (NORMAL)
[2016-06-15] VITALS (8 sets, daily range): BP systolic 114–170; BP diastolic 72–110; PULSE 81–108; RESP 16–20; O2SAT 95–98
--- NOTE | 2016-06-15 03:50 | NUR ---
B/P / NPO B/P remains elevated; Md aware. Brief episode of nausea without emesis resolved without medication. Pt has been NPO since midnight for anticipated tunnel cath placement for dialysis. Hourly rounding ongoing.
--- NOTE | 2016-06-15 07:20 | NUR ---
Critical lab values Multiple critical lab values related to kidney disease. Dr Ford notified, wants pt put onto remote telemetry. serology technician notified and day RN made aware, endorsing care and follow-up to dayshift RN.
[2016-06-15] MEDS ORDERED: Dextrose 50% Water 50 mL Inj IV ONE (08:20)
[2016-06-15] MEDS ORDERED: Insulin Human REGular 300 Unit/3 mL Inj IV SCH (08:25)
--- NOTE | 2016-06-15 08:27 | PCM.PNMED ---
Subjective Date of Service Jun 15, 2016 Subjective Follow up for end stage renal disease , uncontrolled hypertension , hyperkalemia . Patient seen and examined . K 7.4 today . No CP, no palpitation, no shortness of breath . Exam Vital Signs Vital Sign - Last Date Time Temp Pulse Resp B/P Pulse Ox O2 Delivery O2 Flow Rate FiO2 06/15/16 06:30 37.1 107 16 167/98 98 Room Air Intake and Output 06/14/16 06/14/16 06/15/16 Cumulative From/Thru 15:00 23:00 07:00 06/11/16 16:28 - 06/15/16 06:30 Intake Total 1272 ml 1200 ml 5272 ml Output Total 1600 ml 1700 ml 7225 ml Balance -328 ml -500 ml -1953 ml Intake Oral 1272 ml 1200 ml 5272 ml Output Urine Total 1600 ml 1700 ml 7225 ml # Bowel Movements 0 0 0 Exam General: No acute distress. In bed comfortably,NAD HEENT: PERRL . Sclerae is anicteric Mouth : Moist oropharyngeal mucosa. No oral thrush Neck: supple, trachea is midline , no JVD, no lymphadenopathy Chest: no tenderness. Normal respiratory effort Lungs clear to auscultation and percussion. Heart: S1, S2 regular Rate, rhythm is regular. There is no murmur, rub or gallop. Abdomen: Soft, non-tender, non-distended. Normal bowel sounds on quadrant Extremities: No edema, no cyanosis Neurology: Grossly non focal. AAO x 3 IVs and Medications Medications Reviewed: Medications were reviewed in detail Lab and Diagnostics Result Diagram: 06/13/16 1620 06/15/16 0530 X-Rays, CTs and MRIs PROCEDURE: US RENAL SONOGRAM INDICATIONS: ana vs ckd TECHNIQUE: Real-time scanning was performed of the kidneys and bladder, with image documentation. COMPARISON: None. FINDINGS: Kidneys: Kidneys are decreased in size. Right kidney measures 7.6 cm long; left kidney measures 9.7 cm long. Right renal cortical thickness is 1.8 cm; left renal cortical thickness is 1.8 cm. there is bilateral cortical atrophy. No hydronephrosis or nephrolithiasis. No suspicious solid mass lesions. Lobulated appearance of the right kidney. There is hyperechoic left renal parenchymal echotexture probably reflecting medical renal disease. Simple appearing left renal cyst measuring 0.7 x 0.6 x 0.8 cm. Bladder: Pre-void bladder volume is 168 mL. Post-void residual is 3 mL. Pre- void images demonstrate no intraluminal masses or stones. On pre-void images, both of the ureteral jets are noted with color Doppler interrogation. (Of note , ureteral jets may not be detectable in up to 25% of cases due to insufficient differences in specific gravity between ureteral and bladder urine). Miscellaneous: No free pelvic fluid. IMPRESSION: No hydronephrosis. Renal atrophy and parenchymal appearance suggesting medical renal disease. Please correlate clinically. Probable simple appearing left renal cyst, too small to characterize definitively. Dictated by: Constantin Groves M.D. on 06/11/2016 at 19:23 Assessment & Plan Patient is a 30 year old male with a history of Chronic Kidney Disease, Essential Hypertension, and Gout who is admitted to hospital with Acute Kidney Injury on Chronic Kidney Disease likely related to heavy NSAID usage. 1. ESRD -due to progressive CKD due to heavy NSAID , hypertensive nephropathy. US kidneys also consistent with medical renal disease Tunneled dialysis catheter scheduled for today. 2. Hyperkalemia : due to renal failure and worsen by Lisinopril . D50 x one amp. followed by 5 units of insulin IV Start Keyexalate 30 ml. PO x one dose . Repeat bmp one hour later. Place PT on animal health technician ,12 leads EKG Patient has so palpitation, nor chest pain. Dialysis is the definitive solution for his hyperkalemia , Hopefully to be initiated today Hold lisinopril 2. Metabolic acidosis due to ESRD 3. Anemia of CKD 4. . Essential Hypertension : Uncontrolled . Systolic BP in the 160 . - Metoprolol increased to 300 mg by nephrology . Continue adjustment of antihypertensive. consider hydralazine 5. H/o f Gout - Pt is non compliant with his Allopurinol - He has been on Ibuprofen for the last year to control his gout pain 6. Tobacco Use Disorder - Pt counseled to quit smoking Clinical condition became fragile now with severe hyperkalemia . Initiation of dialysis become urgent at this point and is anticipated for today Patient is scheduled for dialysis catheter insertion this morning Further management per nephrology . VTE Mechanical Devices: Intermittant Pneumatic CD Resuscitation Status: CPR: Attempt Resuscitation Time spent 35 minutes Nolan Butler MD Jun 15, 2016 08:27
[2016-06-15] MEDS ORDERED: Desmopressin Inj 21 MCG in 0.9% Sodium Chloride 50 ML IV ONE (08:30)
[2016-06-15] MEDS ORDERED: Albuterol 2.5 mg/3 mL Inhalation Solution NEB STA (08:47)
[2016-06-15] MEDS ORDERED: Heparin 1,000 Unit/mL 10 mL Inj ONE (09:05)
[2016-06-15] MEDS ORDERED: Heparin 5,000 Units/500 mL NS Premix IV ONE (09:05)
[2016-06-15] MEDS ORDERED: 0.9% Sodium Chloride 1,000 ML ONE (09:05)
[2016-06-15] MEDS ORDERED: fentaNYL-PF 50 mCg/mL 2 mL Inj ONE (09:43)
[2016-06-15] MEDS ORDERED: CeFAZolin Inj 2 gm / 50mL D5W IV ONE (09:50)
--- NOTE | 2016-06-15 11:36 | DRSVH ---
PROCEDURE: CV TUNNEL CATH PLCMNT 1. Sonographic guidance for venous access. 2. Conscious sedation for 44 minutes. 3. Right internal jugular vein tunneled hemodialysis catheter placement. 4. Fluoroscopic guidance for catheter placement. INDICATIONS: HIGH BUN AND CREATININE TECHNIQUE: The indications, alternatives, benefits, risks, and complications of the procedure were e xplained to the patient and any family members present. Informed written consent was obtained and pl aced in the chart. The patient was brought to the angiography suite, and conscious sedation was admi nistered intravenously by care home staff, while continuous cardiorespiratory monitoring was pe rformed. Maximum sterile barrier technique was employed per standard protocol, including hand hygiene, cap, ma sk, sterile gown and gloves, and 2% chlorhexidine. Sterile ultrasound probe cover was also utilized. 1% lidocaine was used for local anaesthesia. Under sonographic guidance, the right internal jugular vein was accessed with a Micropuncture set. An 0.035J wire was advanced into the vena cava. Subcuta neous tunnel was created within the right anterior chest wall, through which a 14.5 [place] double lum en tunneled hemodialysis catheter was advanced. Following sequential venotomy tract dilation, the ca theter was advanced through the peel-away sheath and the tip was placed at the cavoatrial junction. Peel-away sheath was removed. Adequate flow was obtained through both lumens of the catheter. The v enotomy was closed with Vicryl, and the catheter was fastened to the skin with Ticron. Both lumens w ere flushed with heparinized saline. The patient tolerated the procedure without difficulty and was in stable condition at the conclusion of the procedure. COMPARISON: None. FINDINGS: The right internal jugular vein is patent by ultrasound. Fluoroscopic imaging demonstrates tip of th e catheter at the cavoatrial junction. IMPRESSION: Right internal jugular vein tunneled hemodialysis catheter placement using sonographic and fluoroscop ic guidance. Dictated by: Hunter Castaneda M.D. on 06/15/2016 at 11:33 Approved by: Hunter Castaneda M.D. on 06/15/2016 at 11:34
--- NOTE | 2016-06-15 11:45 | NUR ---
Transfer Received patient from labor specialist. Report received by laboratory mechanic helper. I received report from primary RN, Syl Joaquin. Patient reports 11/08 discomfort. Oriented to room and plan of care. master automotive glass technician notified.
--- NOTE | 2016-06-15 12:14 | PCM.PNNEPH ---
Subjective Date of Service Jun 15, 2016 Subjective Right tunneled cath placed. no CP/SOB/fever/chills. seen during HD. Exam Vital Signs Vital Sign - Last Date Time Temp Pulse Resp B/P Pulse Ox O2 Delivery O2 Flow Rate FiO2 06/15/16 09:21 36.8 90 16 161/87 98 Room Air Intake and Output 06/14/16 06/14/16 06/15/16 Cumulative From/Thru 15:00 23:00 07:00 06/11/16 16:28 - 06/15/16 06:30 Intake Total 1272 ml 1200 ml 5272 ml Output Total 1600 ml 1700 ml 7225 ml Balance -328 ml -500 ml -1953 ml Intake Oral 1272 ml 1200 ml 5272 ml Output Urine Total 1600 ml 1700 ml 7225 ml # Bowel Movements 0 0 0 Exam Exam GA: AAOx3, NAD. Neck is supple without adenopathy thyromegaly or jugular venous distention. Lungs are clear to auscultation. Heart is regular and rhythmical with soft systolic murmur. Abdomen is soft without any tenderness or rebound guarding masses or hepatosplenomegaly. Extremities do not show any evidence of any clubbing cyanosis or edema. Skin right tunneled cath in place. Lab and Diagnostics Result Diagram: 06/13/16 1620 06/15/16 0530 X-Rays, CTs and MRIs PROCEDURE: US RENAL SONOGRAM INDICATIONS: ana vs ckd TECHNIQUE: Real-time scanning was performed of the kidneys and bladder, with image documentation. COMPARISON: None. FINDINGS: Kidneys: Kidneys are decreased in size. Right kidney measures 7.6 cm long; left kidney measures 9.7 cm long. Right renal cortical thickness is 1.8 cm; left renal cortical thickness is 1.8 cm. there is bilateral cortical atrophy. No hydronephrosis or nephrolithiasis. No suspicious solid mass lesions. Lobulated appearance of the right kidney. There is hyperechoic left renal parenchymal echotexture probably reflecting medical renal disease. Simple appearing left renal cyst measuring 0.7 x 0.6 x 0.8 cm. Bladder: Pre-void bladder volume is 168 mL. Post-void residual is 3 mL. Pre- void images demonstrate no intraluminal masses or stones. On pre-void images, both of the ureteral jets are noted with color Doppler interrogation. (Of note , ureteral jets may not be detectable in up to 25% of cases due to insufficient differences in specific gravity between ureteral and bladder urine). Miscellaneous: No free pelvic fluid. IMPRESSION: No hydronephrosis. Renal atrophy and parenchymal appearance suggesting medical renal disease. Please correlate clinically. Probable simple appearing left renal cyst, too small to characterize definitively. Dictated by: Constantin Groves M.D. on 06/11/2016 at 19:23 Plan Impression End-stage renal disease First HD on 06/15/16 3 hr, UF 1L, DFR 600, BFR 300, 2K. Hyperkalemia due to severe renal insufficiency. Hypertension with hypertensive heart disease and hypertensive nephrosclerosis Atrophic right kidney Anemia secondary to chronic kidney disease Secondary hyperparathyroidism Acute gouty attack Plan: first HD today. Next HD in am. check BMP. PO4. add renavite 1 tab daily. give hectoral IV 4 mcg and aranesp IV 60 mcg with HD today. Melissa Morrow MD Jun 15, 2016 12:14
[2016-06-15] MEDS ORDERED: DOXERCALCIFEROL IV ONE (12:15)
[2016-06-15] MEDS ORDERED: Darbepoetin Alfa 60 mCg/0.3 mL Inj IV ONE (12:15)
--- NOTE | 2016-06-15 14:47 | NUR ---
Social Work-continued d/c planning: Data:EMR Reviewed. Pt is on day 4 of hospitalization for acute kidney failure per H&P. Pt is not medically stable for discharge. Pt to have tunnel catheter placed and then start dialysis. Pt will likely be a chronic dialysis pt. Pt has been up independent in his room. No anticipated discharge needs. SW will continue to follow if needs arise. Assessment:Pt who is independent at baseline. Plan:Pt to discharge home when medically stable via POV. Pt to have tunnel catheter placed and then start dialysis. No anticipated discharge needs. SW will continue to follow if needs arise. GENNY Miller
--- NOTE | 2016-06-15 14:53 | NUR ---
Temporary transfer Patient transferred by bed to room 244-2. Report received from Erik Le RN. audio/video technician notified. stamping bench die maker at bedside. Addendum: 06/15/16 at 1457 by RACQUEL YAO RN Mistaken entry.
--- NOTE | 2016-06-15 14:57 | NUR ---
Transfer Patient received dialysis. Reporting 9/10 incisional pain. Little relief from Morphine. Reported nausea to sheet metal duct installer helper. Transported back to room 1004. Report called by sheet metal duct installer helper.
[2016-06-15] MEDS ORDERED: TRAM50TA2 PO (15:36)
--- NOTE | 2016-06-15 15:39 | NUR ---
Dialysis note: 3 hr tx, Net UF 900. Off 20 min early r/t high venous pressures at 200 QB. contact/ droplet precautions r/t possible MRSA. Hep titer drawn; consent signed. VS varied from 90/34 HR 85 to 134/55 HR 90. pt lethargic at the beginning of tx, but became more responsive by the end of tx. Site clamped x 10 min. and secured with gauze and tape. Clotting noted in the venous chamber. Please see DTR for complete record of VS. Pt returned to floor stable. Addendum: 06/15/16 at 1606 by BERNIE RICHTER RN disregard note, wrong account, meant for another pt.
--- NOTE | 2016-06-15 16:10 | NUR ---
Dialysis note: 3 hr tx, Net UF 800. First tx, right tunneled cath. Accessed without difficulty, Dialysis explained to pt to alleviate anxiety. Hypertensive, beginning of tx 160/72 HR 99 and 136/74 HR 95 at the end of tx. Pt complained of catheter site pain 11/08. Pt calm, watching TV, communicating easily and did not physically react when cath limbs were cleaned and accessed. Floor RN gave morphine to help reduce pain. Continued to reassure him. 2 hr into tx pt ate apple slices. 2 1/2 hr into tx c/o cramping, UF turned off. C/o nausea and pt vomited; Tx DC'd 15 min early, blood returned. Pt reported nausea and cramping relieved. Cath dressing oozing so reinforced with island dresg. Please see DTR for complete record of VS. Pt returned to floor stable.
--- NOTE | 2016-06-15 16:21 | NUR ---
Pain/nausea/dialysis Patient taken this am and had tunnel cath for dialysis placed and then received dialysis this afternoon. Patient with pain so patient given morphine ivp x1 . Received call from nurse on MOC regarding patient's pain so I went to unit to medicate patient. Patient was given 1 mg MS ivp with good effect. Report received from dialysis nurse prior to patient's return to floor. Patient with discomfort at incision site but feeling nauseous so zofran given . Pain med to be given when patient's nausea under control.
[2016-06-15] MEDS: HYDROcodone-APAP 5-325 mg Tablet PO PRN (21:49)
--- NOTE | 2016-06-16 03:55 | NUR ---
Cramping Patient states he is having some cramping in his upper torso. Patient A&OX3. Up independent in room. Vitals stable. Patient stated that he did not have any nausea after eating his dinner. Patient's family by bedside.
[2016-06-16 05:53] LABS: Phosphorus 9.5 mg/dL (2.5-4.9)
[2016-06-16 06:17] VITALS: BP 140/84; PULSE 75; RESP 16; O2SAT 96
--- NOTE | 2016-06-16 08:00 | NUR ---
To MOC for Dialysis Patient ambulated into bathroom, voiding without difficulty. C/o slight soreness at tunnelled catheter placement site, but tolerable. Taken up to MOC on hospital bed with chart for inpatient dialysis.
[2016-06-16 10:23] VITALS: PULSE 84
--- NOTE | 2016-06-16 11:14 | PCM.DIMED ---
Discharge Instructions Date of Service Jun 16, 2016 Dates of Hospitalization Jun 11, 2016 at 16:24 Discharge Diagnosis Discharge Diagnosis 1. ESRD, newly dialysis dependant. 2. Hyperkalemia : due to renal failure and worsen by Lisinopril. 2. Metabolic acidosis due to ESRD 3. Anemia of CKD 4. Essential Hypertension : Uncontrolled . 5. H/o f Gout 6. Tobacco Use Disorder Diet Renal Diet Activity Limited until seen by PCP Call your provider Fever or Chills, Shortness of breath Patient Instructions Follow-up plan FU to be arranged by Nephrology (loida Yung and Rafael) for continued dialysis therapy likely starting tomorrow in addition to further medication MGMT related to this progressive renal disease/failure. . Follow-up with PCP in: 1 week Jin Ghosh DO Jun 16, 2016 11:14
--- NOTE | 2016-06-16 11:22 | PCM.DC.MED ---
Discharge Summary Date of Service Jun 16, 2016 Dates of Hospitalization Date of Hospital Admission Jun 11, 2016 at 16:24 Date of Discharge: Jun 16, 2016 Providers: Admitting Physician: Manoj Suarez MD Primary Care Physician: Cherelle Canseco DO Attending Physician: Manoj Suarez MD Diagnosis at Time of Discharge Diagnosis at Time of Discharge 1. ESRD, newly dialysis dependant. 2. Hyperkalemia : due to renal failure and worsen by Lisinopril. 2. Metabolic acidosis due to ESRD 3. Anemia of CKD 4. Essential Hypertension : Uncontrolled . 5. H/o f Gout 6. Tobacco Use Disorder Consultations Nephrology, Dr Hall. Procedures XRay, CTs & MRIs PROCEDURE: US RENAL SONOGRAM INDICATIONS: ana vs ckd TECHNIQUE: Real-time scanning was performed of the kidneys and bladder, with image documentation. COMPARISON: None. FINDINGS: Kidneys: Kidneys are decreased in size. Right kidney measures 7.6 cm long; left kidney measures 9.7 cm long. Right renal cortical thickness is 1.8 cm; left renal cortical thickness is 1.8 cm. there is bilateral cortical atrophy. No hydronephrosis or nephrolithiasis. No suspicious solid mass lesions. Lobulated appearance of the right kidney. There is hyperechoic left renal parenchymal echotexture probably reflecting medical renal disease. Simple appearing left renal cyst measuring 0.7 x 0.6 x 0.8 cm. Bladder: Pre-void bladder volume is 168 mL. Post-void residual is 3 mL. Pre- void images demonstrate no intraluminal masses or stones. On pre-void images, both of the ureteral jets are noted with color Doppler interrogation. (Of note , ureteral jets may not be detectable in up to 25% of cases due to insufficient differences in specific gravity between ureteral and bladder urine). Miscellaneous: No free pelvic fluid. IMPRESSION: No hydronephrosis. Renal atrophy and parenchymal appearance suggesting medical renal disease. Please correlate clinically. Probable simple appearing left renal cyst, too small to characterize definitively. Dictated by: Constantin Groves M.D. on 06/11/2016 at 19:23 Brief History Patient is a 30 year old male with a past medical history of Essential Hypertension, Chronic Kidney Disease (stage unknown), Gout, and Tobacco Use Disorder. He presented to the ER at [facility] today after he was advised to go there by his new PCP. Pt had a routine appointment to establish care with his PCP yesterday, and she ordered routine bloodwork. Pt was found to have a creatinine of 11 and was referred to the ER for emergent evaluation. Pt states he has had absolutely no symptoms. He denies any urinary changes, and he denies any edema. He states he has Gout and is supposed to take Allopurinol however he has been unable to get his medication filled for quite some time secondary to scheduling conflicts. He has severe chronic pain secondary to Gout in his right ankle, and because of this he has been taking 600 -800 mg of Ibuprofen 1-3 times a day for nearly a year. Pt denies any hematuria. In the ER at [facility], he was given 1 liter of Normal Saline IV and transferred here for Nephrology work-up. Pt has no other complaints or concerns at this time. Hospital Course 1. ESRD -due to progressive CKD due to heavy NSAID , hypertensive nephropathy. US kidneys also consistent with medical renal disease Tunneled dialysis catheter placed on 06/15 and dialysis subsequently performed. ON 06/16 pt feeling better, based on renal studies dialysis was repeated, followed by discharge home with plan for continued outpatient 2. Hyperkalemia : due to renal failure and worsen by Lisinopril . Initial therpay: - D50 x one amp. followed by 5 units of insulin IV - Pt additionally provide Keyexalate 30 ml. PO x one dose initially. Condition normalized following initiation of dialysis treatment. 2. Metabolic acidosis due to ESRD; resolved with dialysis. 3. Anemia of CKD ; will defer MGMT to specialist. My require EPO supplementation. 4. Essential Hypertension : Uncontrolled . Systolic BP in the 160 - We will continue Labetalol 300 mg BID as initiated by nephrology in addition to previously RX'd Lisinopril and Amlodipine which was prescribed previously. BP has been stable today. 5. H/o f Gout - Pt is non-compliant with his Allopurinol - He has been on Ibuprofen for the last year to control his gout pain but this should not be continued in setting of renal disease. 6. Tobacco Use Disorder - Pt counseled to quit smoking Exam Vital Signs (Last) Date Time Temp Pulse Resp B/P Pulse Ox O2 Delivery O2 Flow Rate FiO2 06/16/16 10:23 84 06/16/16 06:17 36.9 16 140/84 96 Room Air Test 06/11/16 16:52 06/12/16 04:55 06/13/16 08:45 06/13/16 16:20 Hold Lopez Top Tube Received (Received) Hemoglobin A1c 5.0% (4.8-5.6) Uric Acid 10.3mg/dL (2.6-7.2) Iron Level 92ug/dL (35-150) Total Iron Binding Capacity 224ug/dL (250-450) Percent Iron Saturation 41%sat (15-50) Unsaturated Iron Binding 131.9ug/dL Parathyroid Hormone (Intact) 730pg/mL (15-65) Hepatitis A IgM Antibody Negative (Negative) Hepatitis B Surface Antigen Negative (Negative) Hepatitis B Core IgM Antibody Negative (Negative) Hepatitis C Antibody <0.1s/co ratio (0.0-0.9) Hepatitis C Comment Comment (.) Total Bilirubin 0.2mg/dL (0.0-1.2) Aspartate Amino Transf (AST/SGOT) 8U/L (0-50) Alanine Aminotransferase (ALT/SGPT) 12U/L (0-44) Alkaline Phosphatase 88U/L (25-150) Total Protein 6.8g/dL (6.4-8.4) Albumin 3.5g/dL (3.4-5.0) White Blood Count 7.6th/mm3 (3.8-10.1) Red Blood Count 3.16mil/mm3 (4.40-5.80) Hemoglobin 9.8g/dL (13.8-17.2) Hematocrit 28.3% (41.0-50.0) Mean Corpuscular Volume 89.6fL (81-100) Mean Corpuscular Hemoglobin 31.0pg (27.0-35.0) Mean Corpuscular Hemoglobin Concent 34.6% (32.0-37.0) Red Cell Distribution Width 12.2% (12.3-15.4) Platelet Count 192bil/L (150-400) Neutrophils (%) (Auto) 58.6% (40-74) Lymphocytes (%) (Auto) 33.0% (14-46) Monocytes (%) (Auto) 6.0% (4-12) Eosinophils (%) (Auto) 1.7% (0-5) Basophils (%) (Auto) 0.4% (0-3) Test 06/14/16 05:30 06/14/16 21:45 06/16/16 04:50 Prothrombin Time 10.4sec (8.1-12.5) Prothromb Time International Ratio 0.97ratio Activated Partial Thromboplast Time 29.7sec (22.8-33.0) Urine Color Straw (YELLOW) Urine Appearance Clear (CLEAR,HAZY) Urine pH 6.0 (5.0-8.0) Urine Specific [place] 1.012 (1.003-1.035) Urine Protein >300mg/dL (NEG,TRACE) Urine Glucose (UA) 500mg/dL (NEGATIVE) Urine Ketones Negativemg/dL (NEGATIVE) Urine Occult Blood Moderate (NEGATIVE) Urine Nitrite Negative (NEGATIVE) Urine Bilirubin Negative (NEGATIVE) Urine Urobilinogen Normalmg/dL (NORMAL) Urine Leukocyte Esterase Negative (NEGATIVE) Urine RBC 3-10/hpf (0-2) Urine WBC 0-5/hpf (0-5) Urine Epithelial Cells Occasional/hpf (NONE-MOD) Urine Crystals None seen (NONE SEEN) Urine Bacteria Few/hpf (NONE-FEW) Urine Hyaline Casts None/lpf (NONE) Urine Granular Casts None seen (NONE SEEN) Urine Waxy Casts None seen (NONE SEEN) Urine Red Blood Cell Casts None seen (NONE SEEN) Urine White Blood Cell Casts None seen (NONE SEEN) Urine Mucus None seen (None Seen) Urine Trichomonas None seen (NONE SEEN) Urine Yeast None (NONE SEEN) Urinalysis Comment None Urine Culture Reflexed Not indicated Sodium Level 140mEq/L (134-144) Potassium Level 4.2mEq/L (3.5-5.2) Chloride Level 96mEq/L (97-108) Carbon Dioxide Level 22mmol/L (18-29) Blood Urea Nitrogen 58mg/dL (6-20) Creatinine 9.19mg/dL (0.76-1.27) Estimat Glomerular Filtration Rate 7mL/min (>59) Glucose Level 107mg/dL (60-99) Calcium Level 7.1mg/dL (8.5-10.1) Phosphorus Level 9.5mg/dL (2.5-4.9) General: Alert, Oriented X3, Cooperative Eyes: PERRLA Mouth: Mucous Membr Moist/[place] Cardiovascular: Regular Rate/Rhythm Abdomen: Non-tender, Non-distended Extremities: No cyanosis/clubbing/edma bilat Skin: Other (Central line in place, clean dressing, no bleeding or discharge. ) Discharge Medications Discharge Medications Allopurinol (Allopurinol) 100 Mg Tablet 100 MG PO DAILY Prescribed by: JIN GHOSH DO Amlodipine (Amlodipine) 5 Mg Tablet 5 MG PO DAILY Prescribed by: JIN GHOSH DO Labetalol (Labetalol) 100 Mg Tablet 300 MG PO BID Prescribed by: JIN GHOSH DO Lisinopril (Lisinopril) 5 Mg Tablet 10 MG PO BID Prescribed by: JIN GHOSH DO Sevelamer Carbonate (Renvela) 800 Mg Tablet 1,600 MG PO TID Prescribed by: JIN GHOSH DO As needed Acetaminophen (Acetaminophen) 500 Mg Tablet 1,000-1,500 MG PO Q6H PRN PRN For Pain (Reported) Calcium Carbonate (Tums) 500 Mg Tab.chew 500 MG PO PRN PRN PRN For Dyspepsia or Heartburn (Reported) Followup Plan Follow-up plan FU to be arranged by Nephrology (loida Yung and Rafael) for continued dialysis therapy likely starting tomorrow in addition to further medication MGMT related to this progressive renal disease/failure. . Discharge Diet: Renal Diet Discharge Activity: Limited until seen by PCP Follow-up with PCP in: 1 week Vital Signs Vital Sign - Last Date Time Temp Pulse Resp B/P Pulse Ox O2 Delivery O2 Flow Rate FiO2 06/16/16 10:23 84 06/16/16 06:17 36.9 16 140/84 96 Room Air Intake and Output 06/15/16 06/15/16 06/16/16 Cumulative From/Thru 15:00 23:00 07:00 06/11/16 16:28 - 06/16/16 06:17 Intake Total 400 ml 5672 ml Output Total 800 ml 900 ml 200 ml 9125 ml Balance -800 ml -900 ml 200 ml -3453 ml Intake Oral 400 ml 5672 ml Output Urine Total 200 ml 7425 ml Ultrafiltrate 800 ml 900 ml 1700 ml # Bowel Movements 0 0 Lab and Diagnostics Result Diagram: 06/13/16 1620 06/16/16 0450 Jin Ghosh DO Jun 16, 2016 11:22
[2016-06-16] MEDS ORDERED: LABE100T4 PO (11:23)
[2016-06-16] MEDS ORDERED: SEVE800T7 PO (11:34)
[2016-06-16] MEDS ORDERED: LISI-571 PO (11:34)
[2016-06-16] MEDS ORDERED: ALLO300T2 PO (12:56)
[2016-06-16] MEDS ORDERED: AMLO5TAB2 PO (12:56)
[2016-06-16] MEDS ORDERED: ZYL100 PO (12:58)
[2016-06-16 12:59] VITALS: BP 128/91; PULSE 91
--- NOTE | 2016-06-16 13:09 | NUR ---
Return from Dialysis/DISCHARGE Patient's VSS after return from dialysis. Reviewed discharge paperwork with patient in detail regarding new medications, when to take them, which ones to avoid prior to dialysis. Gave printed information regarding renal diet, new medications, and hemodialysis. Peripheral IV catheter removed by SN, catheter intact. Patient verbalized understanding of discharge instructions. Scheduled for outpatient dialysis tomorrow, patient aware of time and location. Patient left with all belongings. Escorted outside to personal vehicle.
--- NOTE | 2016-06-16 13:40 | NUR ---
Dialysis note 2nd HD tx today. 3.5 hrs. 1000ml net UF removed. See DTR for complete vitals. QB 300 per MD order. R tunnelled catheter. Some blood oozing and dsg changed for discharge. Pt rested comfortably and tolerated tx well. Plan to D'c and start at [facility] tomorrow. Pt given tx times for [facility] appt. Catheter dwelled with 1000/1 U Heparin and secured. Returned to floor stable.
--- NOTE | 2016-06-16 13:48 | NUR ---
Social Work-discharge: Data:EMR Reviewed. Pt is on day 5 of hospitalization for acute kidney injury per H&P. Pt is medically stable for discharge today. confirms that nephrology has set up outpt dialysis services for pt. Pt has been up independent in his room. No discharge needs identified. All updated and agreeable to plan. Assessment:Pt who is independent at baseline. Plan:Pt to discharge home toady via POV. confirms that nephrology has set up outpt dialysis services for pt.No discharge needs identified. All updated and agreeable to plan. GENNY Miller
[2016-07-24] MEDS ORDERED: LABE300T PO (15:33)
[2016-07-24] MEDS ORDERED: LISI10TA PO (15:33)
== END 2016-06-16 13:10 | disposition home or self-care (01) | DRG 683 ==
LOC: OSC 16:24
PROVIDERS: ADMIT Family Medicine; ATTEND Family Medicine
PROC: 05HM33Z Insertion of Infusion Device into Right Internal Jugular Vein, Percutaneous Approach (ICD-10-PCS; principal; 2016-06-15)
PROC: B513YZA Fluoroscopy of Right Jugular Veins using Other Contrast, Guidance (ICD-10-PCS; 2016-06-15)
PROC: 5A1D00Z (ICD-10-PCS; 2016-06-15)
DX: N18.6 End stage renal disease (principal); E87.2 Acidosis; N17.9 Acute kidney failure, unspecified; I12.0 Hypertensive chronic kidney disease with stage 5 chronic kidney disease or end stage renal disease; F17.210 Nicotine dependence, cigarettes, uncomplicated; M10.9 Gout, unspecified; T39.395A Adverse effect of other nonsteroidal anti-inflammatory drugs [NSAID], initial encounter; Z91.19 Patient's noncompliance with other medical treatment and regimen; D63.1 Anemia in chronic kidney disease; E87.5 Hyperkalemia

== ENCOUNTER 2016-07-28 07:41 | Day surgery (SDC) | payer OTHER ==
[~2016-07-28] VITALS: Ht 170.2 cm; Wt 96.3 kg
[~2016-07-28 07:41] MED LIST changes: +0.9% Sodium Chloride 500 ML IV ONE; +CeFAZolin Inj 2 GM in IV Premix 1 EACH IV ONE; +LABE300T PO; +LISI10TA PO; -LORA-610 PO; -METO50TA3 PO; +SEVE800T7 PO; +ZYL100 PO
[2016-07-28] MEDS ORDERED: fentaNYL-PF 50 mCg/mL 2 mL Inj ONE (07:42)
[2016-07-28] MEDS ORDERED: Propofol 10,000 mCg/mL 20 mL Inj ONE (07:42)
[2016-07-28 08:30] VITALS: BP 126/85; PULSE 84; RESP 16; O2SAT 98
[2016-07-28] MEDS ORDERED: 0.9% Sodium Chloride 500 ML IV ONE (08:46)
--- NOTE | 2016-07-28 09:26 | PCM.HPANE ---
Patient Data Surgeon Admitting Provider: Attending Provider:Dalton Najera MD Primary Care Physician:Cherelle Canseco DO Other Provider:Marvin Nayak Anesthesia Reason for Visit End Stage Renal Failure Ht/WT & BMI Height (Feet): 5 Height (Inches): 7 Weight (Kilograms): 96.3 Body Mass Index 33.00 Allergies Coded Allergies: red (food color) (Verified Allergy, Severe, Rash,Itching,, 07/24/16) Past Anesthesia History Anesthesia History: Denies:: Anesthesia Reactions, Malignant Hyperthermia Diabetes History Hx Diabetes?: No Current Bedside Blood Glucose: 103 MRSA MRSA: No Medications Hypertension Medication: Yes (LABETALOL,LISINOPRIL) Home Meds Incl Beta Baylee: Yes Date Beta Baylee Taken: July 28, 2016 Time Beta Baylee Taken: 714 Active Scripts Allopurinol 100 Mg [id number] Mg PO DAILY #30 TABLET Ref 0 Prov:Jin Ghosh DO 06/16/16 Sevelamer Carbonate (Renvela)800 Mg Tablet1,600 Mg PO TID #84 TABLET Prov:Jin Ghosh DO 06/16/16 Reported Medications Lisinopril 10 Mg [id number] Mg PO DAILY 30 Days Ref 0 07/24/16 Labetalol 300 Mg [id number] Mg PO DAILY 07/24/16 Discontinued Reported Medications Calcium Carbonate (Tums)500 Mg Tab.[id number] Mg PO PRN PRN For Dyspepsia or Heartburn 30 Days 06/11/16 Acetaminophen 500 Mg Tablet1,000-1,500 Mg PO Q6H PRN For Pain 06/11/16 Discontinued Scripts Amlodipine 5 Mg Tablet5 Mg PO DAILY #30 TABLET Ref 0 Prov:Jin Ghosh DO 06/16/16 Lisinopril 5 Mg [id number] Mg PO BID #56 TABLET Prov:Jin Ghosh DO 06/16/16 Labetalol 100 Mg [id number] Mg PO BID #60 TABLET Prov:Jin Ghosh DO 06/16/16 History History of ENT Problems?: No HEENT History: Denies:: Difficult Intubation Denture Type: None Teeth Condition: Within Normal Limits Hx of Heart Problems?: Yes Cardiovascular History: Positive for:: Hypertension (HYPERLIPIDEMIA) Denies:: Cardiac Surgery Chest Pain Congestive Heart Failure Edema Heart Murmur (ECHO 05/2016 EF 60-65%) Irregular Heartbeat Pacemaker Thrombophlebitis Valvular Heart Disease Hx of Respiratory Problem?: Yes Respiratory History: Denies:: Use of C-PAP Machine (SNORES) Hx Neurologic Problems?: Yes Hx of GI Problems?: Yes Hx of Problems?: Yes Genitourinary History: Positive for:: HX of Hemodialysis (ESRD/DIALYSIS ACCESS =CURRENT PROBLEM S/P RT IJ CATH) Denies:: Kidney Stones Urinary Tract Infection HX of Peritoneal Dialysis: No ("1 kidney is smaller than the other one.") Other Pertinent History: HX RENAL ARTERY STENOSIS Male Hx: Denies:: Prostate Problems Scrotal Mass Testicular Surgery Skin History: Positive for:: History Skin Disorders? (rashes "extremely dry skin") Denies:: Pressure Ulcers Hx Musculoskeletal Problems?: Yes Hx of Psycho/Social Problems?: No Hx Surgeries?: Yes (unknown surgery for kidney "they cleaned it out with a tube ",RT IJ CATH) Hx Any Other Health Problems?: Yes Other History: Positive for:: Hospitalization (cellulitis) Denies:: Cancer Endocrine Disease Thyroid Disease History Blood Transfusions: Denies:: Blood Transfuse Reaction Blood Transfusions Hx Diabetes: NoBedside Blood Glucose: 103 Hx Alcohol Use: Yes ("occasional")Hx Substance Use: No Smoking Status: Light Tobacco Smoker Have You Smoked inLast 12 mo: NoApprox How Many Cigarettes/day: 1 PPD Stop/Bang S-Snoring: Do You Snore Loudly: Yes T-Tired: feel tired, fatigued: Yes O-Obsered: Observed not breath: No P-Blood Pressure: treated: Yes B- Body Mass Index > 35 kg/m2: No A- Age over 50: No N- Neck Large Circumference: No G- Gender Male: Yes REINIER Total Score: 4 REINIER Risk Assessment: High Risk, =/>3 Yes Risk Assessment Category Category 1A: Patient has history of documented sleep apnea, and HAS NOT received any narcotic, sedative or anesthesia administration during this stay. Category 1B: Patient has history of documented sleep apnea, and HAS received any narcotic , sedative or anesthesia administration during this stay Category 2: Patient has SUSPECTED Obstructive Sleep Apnea, and HAS received any narcotic , sedative or anesthesia administration during this stay. Category 3: Patient has SUSPECTED Obstructive Sleep Apnea and HAS NOT received narcotic, sedative or anesthesia administration during this stay. Category 4: Outpatient in Procedural Areas with known sleep apnea or who screen positive for High Risk via the STOP/BANG questionnaire. Exam Exam Vital Signs Vital Signs Date Time Temp Pulse Resp B/P Pulse Ox O2 Delivery O2 Flow Rate FiO2 07/28/16 08:30 36.3 84 16 126/85 98 Room Air General Appearance: Alert, Oriented X3, Cooperative, No Acute Distress HEENT/AIRWAY: MP 2 Lungs: Clear to Auscultation, Normal Air Movement Heart: Exam Unremarkable, Regular Rate/Rhythm, No Murmurs/Rubs/Gallops Meds/Labs/Diagnostics Admission Meds Current Medications Sodium Chloride (Normal Saline) 500 ml @ ud STK-MED ONCE IV Last administered on 07/28/16t 08:46; Start 07/28/16 at 08:46; Stop 07/28/16 at 08:47; Status DC Bedside Blood Glucose: 103 Labs Test 07/28/16 08:59 Hold [place] Top Tube Received (Received) Plan Impression Patient chart reviewed, patient interviewed and anesthestic plan with risks, benefits, and alternatives discussed, and informed consent obtained. NPO per Anesth. Guidelines: Yes ASA Physical Status: ASA3 Severe Disease Anesthetic Plan: MAC Bene/Risks/Altern/Consents: Yes HP Complete Prior to Induction: Yes Osman Dunn MD July 28, 2016 09:26
[2016-07-28] MEDS ORDERED: Papaverine 30 mg/mL 2 mL Inj XX ONE (10:01)
[2016-07-28] MEDS ORDERED: Heparin 5,000 Unit/mL Inj IR ONE (10:01)
[2016-07-28] MEDS ORDERED: Lidocaine PF 1% 30 mL Inj INJ ONE (10:01)
[2016-07-28] MEDS ORDERED: Bupivacaine-MPF 0.5% 30 mL Inj INFILTRATE ONE (10:01)
[2016-07-28] MEDS ORDERED: Atropine 0.4 mg/mL Inj IVPUSH PRN (10:15)
[2016-07-28] MEDS ORDERED: Phenylephrine 10,000 mCg/mL Inj IVPUSH PRN (10:15)
[2016-07-28] MEDS ORDERED: MetoCLOpramide 5 mg/mL 2 mL Inj IVPUSH PRN (10:15)
[2016-07-28] MEDS ORDERED: Ondansetron 2 mg/mL 2 mL Inj IVPUSH PRN (10:15)
[2016-07-28] MEDS ORDERED: fentaNYL-PF 50 mCg/mL 2 mL Inj IVPUSH PRN (10:15)
[2016-07-28] MEDS ORDERED: EPHEDrine Sulfate 50 mg/mL Inj IVPUSH PRN (10:15)
[2016-07-28] MEDS ORDERED: Lactated Ringer's 500 ML IV PRN (10:15)
[2016-07-28] MEDS ORDERED: Dexamethasone 4 mg/mL Inj IVPUSH PRN (10:15)
[2016-07-28] MEDS ORDERED: Labetalol 5 mg/mL 4 mL Inj IV PRN (10:15)
[2016-07-28] MEDS ORDERED: Lactated Ringer's 1,000 ML IV SCH (10:15)
[2016-07-28] MEDS ORDERED: HYDROmorphone 1 mg/mL Inj IVPUSH PRN (10:15)
[2016-07-28 12:31] VITALS: BP 117/61; PULSE 75; RESP 16; O2SAT 97
[2016-07-28] MEDS ORDERED: HYDROcodone-APAP 5-325 mg Tablet PO PRN (12:40)
[2016-07-28 12:56] VITALS: BP 113/62; PULSE 81; RESP 18; O2SAT 96
--- NOTE | 2016-07-28 13:31 | PCM.ANEP1 ---
Post Anesthesia PACU Phase 1 Assessment Vital Signs Vital Signs Date Time Temp Pulse Resp B/P Pulse Ox O2 Delivery O2 Flow Rate FiO2 07/28/16 12:56 81 18 113/62 96 Room Air 07/28/16 12:31 36.5 75 16 117/61 97 Room Air 07/28/16 08:30 36.3 84 16 126/85 98 Room Air Anesthetic Administered: MAC Level of Alertness: Awake, talking NICOLAS's with Equal Strength: Yes Pain: No Nausea or Vomiting: No CV Function & Hydration Stable: Yes Airway Device: Oxygen Delivery: Room Air Lungs: Clear to Auscultation, Normal Air Movement Dermatome Level: Full Sensation PACU Phase 2 Assessment Complications: No Follow up Care: N/A Patient Instructions Provided: Yes Osman Dunn MD July 28, 2016 13:31
--- NOTE | 2016-07-28 13:45 | OP ---
[address] [address] OPERATIVE REPORT PATIENT: HORTENSIA JOHNSON : 1985 MR#: [id number] ADMIT: 07/28/2016 JOB ID: [id number] DATE OF SURGERY: 07/26/2016 PREOPERATIVE DIAGNOSIS(ES): End-stage renal failure. POSTOPERATIVE DIAGNOSIS(ES): End-stage renal failure. PROCEDURE: Left radiocephalic arteriovenous fistula. SURGEON: Dalton Najera M.D. BLACK TOP ROLLER: Sylvia Montaño PA-C. INDICATIONS: A 30-year-old man with end-stage renal failure on dialysis through a right internal jugular tunneled catheter. He had adequate forearm cephalic veins. His palmar arches were intact bilaterally. He is right-handed and it was elected then to proceed with a left radiocephalic AV fistula. FINDINGS: At the conclusion of the operation, his hand was well perfused. He had a palpable thrill in the fistula which was expanding. DESCRIPTION OF PROCEDURE: At the beginning and end of the operation, the SCOAP checklist was completed. Dr. Roel Powell provided sedation. Using ChloraPrep, his left upper extremity was prepped and draped in the usual fashion. He received local anesthesia with 1% lidocaine, 0.25% bupivacaine. A linear incision was made just lateral to the palpable radial pulse and then with sharp dissection, the cephalic vein was identified. It was mobilized but not divided. The brachial artery was then identified exposed proximally and distally. Small lateral branches were cauterized, and it was controlled with a vessel loop. The vein was controlled distally with two hemoclips and then it was divided and flushed with heparinized saline. The artery was occluded, opened longitudinally, and flushed proximally and distally with heparinized saline. The ambrose of the fistula was made and the distal end trimmed. The anastomosis was then performed initially with three interrupted 6-0 Prolene sutures placed at the heel but then the two lateral sutures were used to sew a continuous anastomosis around the ambrose of the fistula. [place] through, the vein was flushed with papaverine. The artery was first backflushed into the vein followed by forward flushing into the vein and then forward flow to the hand. There appeared to be a kink of the fistula right near the heel of the fistula. Initially I tried to free up adventitia to see if it would open up but it would not open up. So I then elected to do a vertical venotomy, which I would then closed transversely in order to open up the heel. When I did that, I could then appreciate that inside was the end of a cut Prolene. I am not certain how it got in because all the sutures that had been cut were cut on the outside. I suspect it was simply rolled in because of tension. I trimmed that back and I did not see anymore foreign body within the vein. I then proceeded to close the venotomy transversely as planned and then again with first backflushing, then forward flushing, then forward flow to the hand, there was an excellent thrill in the fistula. There was no bleeding from the anastomosis. The wound was then closed with interrupted subcutaneous 3-0 Vicryl and running 4-0 Monocryl subcuticular sutures. Dermabond was used on the skin. The estimated blood loss was less than 10 cc. There are no apparent complications. The final sponge, needle and instrument counts were announced as correct and he was returned to the recovery room in stable condition Critical assistance was provided by Sylvia Montaño PA-C.
== END 2016-07-28 23:59 | disposition home or self-care (01) ==
LOC: SAS 07:41
PROVIDERS: ATTEND Surgery
DX: I12.0 Hypertensive chronic kidney disease with stage 5 chronic kidney disease or end stage renal disease (principal); N18.6 End stage renal disease; E78.5 Hyperlipidemia, unspecified; Z87.891 Personal history of nicotine dependence; Z99.2 Dependence on renal dialysis
CPT/HCPCS: 36415; 36818; 82947; 84132; J0690; J1644; J2250; J3010; J7030

== ENCOUNTER 2016-09-07 19:29 | Emergency (ER) | payer OTHER ==
[~2016-09-07] VITALS: Ht 170.2 cm; Wt 98.5 kg
[~2016-09-07 19:29] MED LIST changes: -0.9% Sodium Chloride 500 ML IV ONE; -CeFAZolin Inj 2 GM in IV Premix 1 EACH IV ONE
[2016-09-07 19:46] VITALS: BP 190/121; PULSE 72; RESP 16; O2SAT 98
--- NOTE | 2016-09-07 20:33 | ED.REPORT ---
HPI-Abd Pain M Under 40 Date of Service Sep 07, 2016 ED Provider: Dr. Chinchilla 30 y/o male with a hx of ESRD (on dialysis ofr the last 5 months) and HTN (on Labetalol and Lisinopril) presents to the ED complaining of non-radiating upper quadrant abdominal pain, onset just prior to arrival while he was at his dialysis appointment. It has almost resolved in the ED. He describes it as a sharp pain and rates it 10/10 during dialysis. Associated sx include nausea and vomiting during dialysis, dizziness and high blood pressure. His BP during dialysis was around 200. In the ED, his BP is 163. He states his baseline is 150 -160. The pt denies trauma, falls, chest pain, back pain, SOB, fever, chills, diarrhea, constipation and experiencing similar sx before. The pt also reports gout in his ankles which he has been taking Prednisone for the last week. Nursing Notes Stated Complaint: KIDNEYS Chief Complaint: Male Abdominal Pain Nursing Notes Reviewed: Yes Allergies: Coded Allergies: red (food color) (Verified Allergy, Severe, Rash,Itching,, 07/24/16) ibuprofen (Verified Allergy, Intermediate, 09/07/16) NOT GOOD W/DIALYSIS Scheduled Allopurinol (Allopurinol) 100 Mg Tablet 100 MG PO DAILY Labetalol (Labetalol) 300 Mg Tablet 300 MG PO DAILY Lisinopril (Lisinopril) 10 Mg Tablet 10 MG PO DAILY Sevelamer Carbonate (Renvela) 800 Mg Tablet 1,600 MG PO TID General Time Seen by MD: 20:32 Chief Complaint Abdominal pain (resolved in the ED) Hx Obtained From: Patient Arrived By: Walk-in Sudden in Onset?: Yes Onset Occurred: Just prior to arrival Symptom Duration: Since onset Progression since Onset: Rapidly improving Location: : Abdomen upper Quality: Sharp Severity: Current: Mild Severity: Maximum: Pain level 10 out of 10 Recent Healthcare: No recent doctor visit Similar Sx Previous: No Past Medical History Past Medical History ESRD (on dialysis) HTN HYPERLIPIDEMIA Past Surgical History RIGHT IJ CATH Smoking History Light Tobacco Smoker Social History Alcohol Use: "Social" Other Social History: Good social support Ambulatory Status Independent Review of Systems Reports: high blood pressure Reports: gout Constitutional: Denies: Chills, Fever Respiratory: Denies: Shortness of breath Cardiovascular: Denies: Chest pain GI: Reports: Abdominal pain (now resolved), Nausea, Vomiting, Denies: Constipation, Diarrhea Musculoskeletal: Denies: Back pain Complete sys rev & neg: except as marked. Neurologic: Reports: Dizziness Physical Exam Initial Vital Signs Vital Signs (First) Date Time Temp Pulse Resp B/P Pulse Ox O2 Delivery O2 Flow Rate FiO2 09/07/16 19:46 36.7 72 16 190/121 98 Room Air Initial VS: Reviewed, Vital signs abnormal Head / Eyes: Atraumatic, Normocephalic Neck: Supple, Non-tender, Full range of motion Extremities: Vascular intact, Neuro intact, No swelling, No tenderness Skin: Warm, Dry, No cyanosis Neurologic: Alert, Oriented, Nonfocal General/Constitutional: Awake, Alert, No acute distress, Cooperative Respiratory / Chest: Atraumatic, Breath sounds NL, Breath sounds = bilat, No respiratory distress, No rales, No rhonchi, No wheezing Cardiovascular: Heart rate NL, Regular rhythm, Heart sounds NL, No gallop, No murmurs, No rubs Abdomen: Atraumatic, No guarding Back: Atraumatic, Full range of motion, Painless range of motion Interpretation & Diagnostics Lab Results Interpretation Result Diagram: 09/07/16 2030 09/07/16 2030 Test 09/07/16 20:30 09/07/16 20:39 White Blood Count 11.1th/mm3 (3.8-10.1) Red Blood Count 3.66mil/mm3 (4.40-5.80) Hemoglobin 12.3g/dL (13.8-17.2) Hematocrit 35.0% (41.0-50.0) Mean Corpuscular Volume 95.6fL (81-100) Mean Corpuscular Hemoglobin 33.6pg (27.0-35.0) Mean Corpuscular Hemoglobin Concent 35.1% (32.0-37.0) Red Cell Distribution Width 15.3% (12.3-15.4) Platelet Count 233bil/L (150-400) Neutrophils (%) (Auto) 67.4% (40-74) Lymphocytes (%) (Auto) 23.9% (14-46) Monocytes (%) (Auto) 6.9% (4-12) Eosinophils (%) (Auto) 0.9% (0-5) Basophils (%) (Auto) 0.2% (0-3) Sodium Level 135mEq/L (134-144) Potassium Level 3.4mEq/L (3.5-5.2) Chloride Level 90mEq/L (97-108) Carbon Dioxide Level 24mmol/L (18-29) Blood Urea Nitrogen 29mg/dL (6-20) Creatinine 4.73mg/dL (0.76-1.27) Estimat Glomerular Filtration Rate 16mL/min (>59) Glucose Level 100mg/dL (60-99) Calcium Level 9.1mg/dL (8.5-10.1) Magnesium Level 1.6mg/dL (1.6-2.6) Total Bilirubin 0.3mg/dL (0.0-1.2) Aspartate Amino Transf (AST/SGOT) 13U/L (0-50) Alanine Aminotransferase (ALT/SGPT) 20U/L (0-44) Alkaline Phosphatase 102U/L (25-150) Total Protein 8.3g/dL (6.4-8.4) Albumin 4.5g/dL (3.4-5.0) Lipase 60U/L (13-60) Hold [place] Top Tube Received (Received) Urine Color Yellow (YELLOW) Urine Appearance Clear (CLEAR,HAZY) Urine pH 7.5 (5.0-8.0) Urine Specific [place] 1.010 (1.003-1.035) Urine Protein 300mg/dL (NEG,TRACE) Urine Glucose (UA) 100mg/dL (NEGATIVE) Urine Ketones Negativemg/dL (NEGATIVE) Urine Occult Blood Trace (NEGATIVE) Urine Nitrite Negative (NEGATIVE) Urine Bilirubin Negative (NEGATIVE) Urine Urobilinogen Normalmg/dL (NORMAL) Urine Leukocyte Esterase Negative (NEGATIVE) Urine RBC 0-2/hpf (0-2) Urine WBC 0-5/hpf (0-5) Urine Epithelial Cells Occasional/hpf (NONE-MOD) Urine Crystals None seen (NONE SEEN) Urine Bacteria None/hpf (NONE-FEW) Urine Hyaline Casts None/lpf (NONE) Urine Granular Casts None seen (NONE SEEN) Urine Waxy Casts None seen (NONE SEEN) Urine Red Blood Cell Casts None seen (NONE SEEN) Urine White Blood Cell Casts None seen (NONE SEEN) Urine Mucus None seen (None Seen) Urine Trichomonas None seen (NONE SEEN) Urine Yeast None (NONE SEEN) Urinalysis Comment None Urine Culture Reflexed Not indicated Re-Eval/Medical Decision Med Decision/Clinical Course The patient had abdominal pain which has now resolved. He was also noted to be very hypertensive and is likely related to pain given his blood pressures down to his usual. A partial differential diagnoses considered were pancreatitis, cholecystitis, gastroenteritis, bowel obstruction. The patient remained asymptomatic and evaluation here was unremarkable. Re-Evaluation/Progress : Time of Eval: 20:26 Patient Status: Pain resolved Re-Evaluation/Progress Note: Rechecked pt. Discussed lab results, diagnosis and plan to discharge. Pt understands and agrees with the plan. F/U instructions and RTER warning given. All questions addressed. Counseled Regarding: Diagnosis, Lab results, Need for follow-up, When/why to return to ED Patient Discharge & Departure Primary Impression: Resolved abdominal pain Disposition: Home Discharge Condition All VS Reviewed: Yes Condition: Stable Patient Instructions: Acute Abdominal Pain (ED) Additional Instructions: Thank you for entrusting us with your care today. Your lab results are reassuring. The cause of your symptoms is unclear. Follow up with your primary care provider if needed. Return to the emergency department in case of recurrent or worsening symptoms. Referrals: Cherelle Canseco DO (PCP) Scribe Attestation Portions of this note were transcribed by Tamiko Sanford. I, , personally performed the history, physical exam and medical decision-making;I reviewed and confirmed the accuracy of the information in the transcribed note. Signed by Basilio Barrientos. 09/07/16 22:42 copies to: Cherelle Canseco Jena M MD Sep 07, 2016 20:33 Tamiko Sanford Sep 07, 2016 21:13
[2016-09-07 20:41] LABS: BASOPHILS % (AUTO) 0.2 % (0-3); EOSINOPHILS % (AUTO) 0.9 % (0-5); MONOCYTES % (AUTO) 6.9 % (4-12); Mean Corpuscular Hemoglobin 33.6 pg (27.0-35.0); Mean Corpuscular Volume 95.6 fL (81-100); NEUTROPHILS % (AUTO) 67.4 % (40-74); Platelet Count 233 bil/L (150-400)
[2016-09-07 21:10] LABS: APPEARANCE,URINE CLEAR (CLEAR,HAZY); COLOR,URINE YELLOW (YELLOW); OCCULT BLOOD,URINE TRACE (NEGATIVE); PH,URINE 7.5 (5.0-8.0); UROBILINOGEN,URINE NORMAL (NORMAL)
[2016-09-07 21:25] LABS: Magnesium 1.6 mg/dL (1.6-2.6)
[2016-09-07 22:10] VITALS: BP 159/102; PULSE 77; RESP 16; O2SAT 98
== END 2016-09-07 22:08 | disposition home or self-care (01) ==
LOC: SED 19:29
DX: R10.10 Upper abdominal pain, unspecified (principal); R11.2 Nausea with vomiting, unspecified; R19.7 Diarrhea, unspecified; N18.6 End stage renal disease; I13.11 Hypertensive heart and chronic kidney disease without heart failure, with stage 5 chronic kidney disease, or end stage renal disease; E78.5 Hyperlipidemia, unspecified; Z99.2 Dependence on renal dialysis; Z88.8 Allergy status to other drugs, medicaments and biological substances; Z91.02 Food additives allergy status